=== PATIENT | male | born 1975 | race Caucasian/White ===

== ENCOUNTER → 2022-02-22 07:59 | Outpatient (BNVA) | payer MEDICAID, SELFPAY | PROVIDERS: PCP Internal Medicine; Referring Provider Internal Medicine; Visit Provider Nurse Practitioner Family | DX: Z12.11 Encounter for screening for malignant neoplasm of colon (principal); K21.9 Gastro-esophageal reflux disease without esophagitis | CPT/HCPCS: 99202 ==

== ENCOUNTER 2022-06-21 08:38 | Day surgery (SDC) | payer MEDICAID, SELFPAY ==
[2022-06-15 15:40] VITALS: BMI 28.4
--- NOTE | 2022-06-20 11:48 | P.CONAN_ITS ---
Documented by User: Andra Iyer NP 06/20/22 11:48 HPI - Anesthesia Eval Consult details Narrative: 46yo M for Colonoscopy [facility] Past Medical History Medical History GERD (gastroesophageal reflux disease) Family History Family History Father Diabetes Mother Diabetes Surgical History Surgical History No pertinent past surgical history Social History Social History Alcohol intake: never Patient Tobacco Use Status: Never used Tobacco Use of substances other than those prescribed or required for medical reasons: Yes Substance Use Type Other:: hookah occasional (Bulgarian custom) Substance Use Frequency: Occasionally Are you DNR?: No Advance Directives: No Advance Directives Information Provided: Yes Meds Allergies Allergy/AdvReac Type Severity Reaction Status Date / Time No Known Allergies Allergy Verified 02/22/22 08:10 Exam Exam Date and Time: June 20, 2022 1148 Height,Weight and Vital Signs: Height 5 ft 8 in Weight 84.822 kg Assessment and Plan Assessment Anesthesia Assessment: Chart Reviewed Documented by User: Ava Law MD 06/21/22 09:35 [facility] Past Medical History Medical History GERD (gastroesophageal reflux disease) Functional capacity: independent ambulation Family History Family History Father Diabetes Mother Diabetes Family history of problems with anesthesia: No Surgical History Surgical History No pertinent past surgical history History of Problems with Anesthesia: No Social History Social History Alcohol intake: never Patient Tobacco Use Status: Never used Tobacco Use of substances other than those prescribed or required for medical reasons: Yes Substance Use Type Other:: hookah occasional (Bulgarian custom) Substance Use Frequency: Occasionally Are you DNR?: No Advance Directives: No Advance Directives Information Provided: Yes Meds Allergies Allergy/AdvReac Type Severity Reaction Status Date / Time No Known Allergies Allergy Verified 02/22/22 08:10 Exam Airway Mallampati Class: II TM Dist: >3cm Heart: RRR Lungs: CTA Assessment and Plan Final Anesthetic Review Family History of Problems with Anesthesia: No History of Problems with Anesthesia: No NPO: Yes ASA Class: II Final Preanesthetic Review: No Changes in Pt Med Stat, Meds/Allgs Chart Reviewed, Consent Obtained/Reviewed and Anes Risks/Benef Reviewed Patient Risk: Low Procedure Risk: Low Anesthetic Plan Anesthetic Plan: MAC: Disposition: Standard PACU
[2022-06-21 08:56] VITALS: BP 112/79; PULSE 80; RESP 16; TEMP 36.5; O2SAT 97; BMI 28.8
[2022-06-21] MEDS: Lactated Ringers 1,000 ML 100 ML IVCONT (09:14)
--- NOTE | 2022-06-21 09:14 | P.HPSUR_ITS ---
Pre-Procedural Eval Section A Date of Service: 06/21/22 Section B Chief Complaint: screening Relevant Family History (Specify if Yes): No Relevant Social History: Other (specify) (hookah ) Present Medications: see Short Stay Collaborative assessment Medical History: Significant History (gerd) History of Previous Operations: No relevant previous surgery Allergies: Allergies Allergy/AdvReac Type Severity Reaction Status Date / Time No Known Allergies Allergy Verified 02/22/22 08:10 Review of Systems Sugical H&P ROS: Negative: Constitution, Cardiovascular, Respiratory, Neurological, Psychiatric, Hem-Onc, Allergic/Immunologic, Gastrointestinal, Genitourinary, Musculoskeletal, Integumentary, Endocrine and Eyes/Ears/Nose/Throat Exam Surgical H&P Exam: Normal: HEENT, Normal: Heart, Normal: Lungs, Normal: E xtremities, Normal: Abdomen, Normal: Skin and Normal: Neurological Plan Diagnosis/Plan: Unchanged I have reviewed the history and physical and performed a pertinent physical examination on my patient. No changes have occurred unless specified.
--- NOTE | 2022-06-21 09:14 | P.OP_ITS ---
Operative Note Operative Note Date of Service: 06/21/22 Narrative: Operative Information Procedure Description: Colonoscopy Indication: screening Anesthesia: MAC COLONOSCOPY Instrument: Olympus variable stiffness pediatric scope 190L Colonoscopy Monitoring: Vital signs and clinical assessment, continuous EKG monitoring, Pulse oximetry, Carbon Dioxide monitoring and blood pressure monitoring were done throughout the procedure. Colon withdrawal time was 6 minutes. Procedure: The patient was placed in the left lateral decubitis position and pre-procedure medications were administered. After a digital rectal examination of the ano-rectum, the video colonoscope was inserted into the rectum and advanced through the colon to the cecum/TI. The colonoscope was slowly withdrawn in a retrograde panoramic fashion and the colon mucosa was carefully examined including a retroflexed view of the rectum. Findings and interventions are described below. Procedure Difficulty: easy Findings: Terminal Ileum-normal right sided retroflexion--normal Cecum:normal Ascending Colon: normal Transverse Colon -normal Descending Colon: 10 mm sessile polyp removed with cold snare, kudo pattern consistent with adenoma Sigmoid Colon: normal Rectum: Retroflexion with small internal hemorrhoids, grade I Anorectum - normal Colon preparation: [place] Bowel Preparation Scale Right colon; 3 Transverse colon: 3 Left colon; 3 (0 = Unprepared colon segment with mucosa not seen due to solid stool that cannot be cleared. 1 = Portion of mucosa of the colon segment seen, but other areas of the colon segment not well seen due to staining, residual stool and/or opaque liquid. 2 = Minor amount of residual staining, small fragments of stool and/or opaque liquid, but mucosa of colon segment seen well. 3 = Entire mucosa of colon segment seen well with no residual staining, small f ragments of stool or opaque liquid) Impression and Post Procedure Diagnosis: polyp internal hemorrhoids Plan: High fiber diet leaflet Avoid straining at stool, epsom salts and sitz bath, anusol supps or cream Repeat Colonoscopy in 5 years due to polyp or earlier if clinically indicated Above findings were reviewed with the patient and relevant handouts were provided if indicated.
[2022-06-21 09:47] VITALS: BP 89/55; PULSE 81; RESP 16; TEMP 36.8; O2SAT 95
== END 2022-06-21 11:24 | disposition home or self-care (01) ==
PROVIDERS: PCP Internal Medicine; Visit Provider Internal Medicine Gastroenterology
PROC: 0DJD8ZZ Inspection of Lower Intestinal Tract, Via Natural or Artificial Opening Endoscopic (ICD-10-PCS; CPT 45378; principal; 2022-06-21 09:30)
DX: Z12.11 Encounter for screening for malignant neoplasm of colon (principal); D12.2 Benign neoplasm of ascending colon; K64.0 First degree hemorrhoids; K21.9 Gastro-esophageal reflux disease without esophagitis
CPT/HCPCS: 45385; 88305

== ENCOUNTER 2022-07-19 08:12 | Outpatient (REF) | payer MEDICAID, SELFPAY ==
[2022-07-20 13:31] LABS: H Pylori Breath Test Negative (Negative)
== END 2022-07-19 08:13 | disposition home or self-care (01) ==
LOC: CF 08:12
PROVIDERS: PCP Internal Medicine; Referring Provider Internal Medicine; Visit Provider Nurse Practitioner Family
DX: K21.9 Gastro-esophageal reflux disease without esophagitis (principal); D36.9 Benign neoplasm, unspecified site; Z98.890 Other specified postprocedural states
CPT/HCPCS: 36415; 83013; 99212

== ENCOUNTER → 2022-10-18 09:46 | Outpatient (BNVA) | payer MEDICAID, SELFPAY | PROVIDERS: PCP Internal Medicine; Visit Provider Nurse Practitioner Family | DX: K21.9 Gastro-esophageal reflux disease without esophagitis (principal); Z79.899 Other long term (current) drug therapy | CPT/HCPCS: 99212 ==

== ENCOUNTER → 2023-01-16 10:01 | Outpatient (BNVA) | payer MEDICAID, SELFPAY | PROVIDERS: PCP Internal Medicine; Visit Provider Nurse Practitioner Family | DX: K21.9 Gastro-esophageal reflux disease without esophagitis (principal) | CPT/HCPCS: 99212 ==

== ENCOUNTER 2023-02-14 11:49 | Day surgery (SDC) | payer MEDICAID, SELFPAY ==
--- NOTE | 2023-02-13 13:28 | HO.ANESPROP2 ---
Documented by User: Andra Iyer NP 02/13/23 13:28 HPI - Anesthesia Eval Consult details Narrative: 47yo M for Upper Endoscopy [facility] Active Problems Active Problems: All Active Problems (Updated 07/19/22 @ 09:09 by Meaghan Liu [facility]) Tubular adenoma (Acute) Past Medical History Medical History GERD (gastroesophageal reflux disease) Tubular adenoma Family History Family History Father Diabetes Mother Diabetes Family history of problems with anesthesia: No Surgical History Surgical History Hx of colonoscopy No pertinent past surgical history History of Problems with Anesthesia: No Social History Social History Alcohol intake: never Patient Tobacco Use Status: Former Tobacco user Quit Date: 2005 Use of substances other than those prescribed or required for medical reasons: No Are you DNR?: No Advance Directives: No Advance Directives Information Provided: Yes Meds Allergies Allergy/AdvReac Type Severity Reaction Status Date / Time No Known Allergies Allergy Verified 02/14/23 12:13 Exam Exam Date and Time: February 13, [id number] Assessment and Plan Assessment Anesthesia Assessment: Chart Reviewed Final Anesthetic Review Family History of Problems with Anesthesia: No History of Problems with Anesthesia: No Documented by User: Emily Flores MD 02/14/23 13:23 PMF[facility] Active Problems Active Problems: All Active Problems (Updated 02/14/23 @ 12: by Emily Flores MD) Tubular adenoma (Acute) Past Medical History Medical History GERD (gastroesophageal reflux disease) Tubular adenoma Family History Family History Father Diabetes Mother Diabetes Surgical History Surgical History Hx of colonoscopy No pertinent past surgical history Social History Social History Alcohol intake: never Patient Tobacco Use Status: Former Tobacco user Quit Date: 2005 Use of substances other than those prescribed or required for medical reasons: No Are you DNR?: No Advance Directives: No Advance Directives Information Provided: Yes Meds Allergies Allergy/AdvReac Type Severity Reaction Status Date / Time No Known Allergies Allergy Verified 02/14/23 12:13 Exam Height,Weight and Vital Signs: Height 5 ft 8 in Weight 86.183 kg Vital Signs Temp Pulse Resp BP Pulse Ox O2 Del Method 02/14/23 12:32 97.7 F 63 15 123/79 95 Room Air Airway Mallampati Class: II TM Dist: >3cm Neck ROM: Full Loose/Missing/Broken Teeth: Yes (Couple of extractions back) Heart: RRR Lungs: CTAB Assessment and Plan Assessment Anesthesia Assessment: Anesthesia Plan Discussed Final Anesthetic Review NPO: Yes ASA Class: II Final Preanesthetic Review: No Changes in Pt Med Stat, Meds/Allgs Chart Reviewed, Consent Obtained/Reviewed and Anes Risks/Benef Reviewed Patient Risk: Low Procedure Risk: Low Assessment/Block/Sedation in SS: Assess/Block/Sedation-SS Anesthetic Plan Anesthetic Plan: MAC: Disposition: Standard PACU
--- NOTE | 2023-02-14 12:08 | MHC.SHP ---
Documented by User: Kyree Knutson MD 02/14/23 15:03 Pre-Procedural Eval Section A Date of Service: 02/14/23 Section B Chief Complaint: Gastro-esophageal reflux disease without esophagit Relevant Social History: None Present Medications: see Short Stay Collaborative assessment Medical History: Significant History (GERD (gastroesophageal reflux disease) Tubular adenoma) History of Previous Operations: Relevant previous surgery/procedure and date(s) (colonoscopy) Allergies: Allergies Allergy/AdvReac Type Severity Reaction Status Date / Time No Known Allergies Allergy Verified 01/16/23 10:19 Review of Systems Sugical H&P ROS: Negative: Constitution, Cardiovascular, Respiratory, Neurological, Psychiatric, Hem-Onc, Allergic/Immunologic, Gastrointestinal, Genitourinary, Musculoskeletal, Integumentary, Endocrine and Eyes/Ears/Nose/Throat Exam Surgical H&P Exam: Normal: HEENT, Normal: Heart, Normal: Lungs, Normal: Extremities, Normal: Abdomen, Normal: Skin and Normal: Neurological Plan Diagnosis/Plan: Unchanged I have reviewed the history and physical and performed a pertinent physical examination on my patient. No changes have occurred unless specified. Time Spent With Patient Time: Total time managing care of this patient today ____ minutes. Documented by User: Emily Flores MD 02/14/23 13:25 Pre-Procedural Eval Section A Date of Service: 02/14/23 Section B Chief Complaint: Gastro-esophageal reflux disease without esophagit
[2023-02-14 12:14] VITALS: BMI 28.9
[2023-02-14 12:32] VITALS: BP 123/79; PULSE 63; RESP 15; TEMP 36.5; O2SAT 95
[2023-02-14] MEDS: Lactated Ringers 1,000 ML 100 ML IVCONT (12:51)
--- NOTE | 2023-02-14 15:03 | W.PM.OPN ---
Operative Note Operative Note Date of Service: 02/14/23 Narrative: Procedure Description: EGD Indication: GERD Anesthesia: MAC FLEXIBLE TRANSORAL UPPER GASTROINTESTINAL ENDOSCOPY UPPER ENDOSCOPY Consent: Indications for the procedure and potential complications of bleeding, perforation, reaction to medications and missed diagnosis were discussed with the patient and informed consent was obtained. Instrument: Olympus GIF H 190 J mid size upper endoscope Monitoring: Vital signs and clinical assessment, continuous EKG monitoring, Pulse oximetry, Carbon Dioxide monitoring and blood pressure monitoring were done throughout the procedure. Procedure: The patient was placed in the left lateral decubitis position and pre-procedure medications were administered and a bite block was placed. The endoscope was inserted into the mouth and advanced under direct vision to the third part of duodenum. A careful inspection was made as the upper endoscope was withdrawn including a retroflexed examination of the proximal stomach; Findings and interventions are described below. Findings: Larynx:normal Esophagus: GE junction at 38 cm, diaphragm hiatus at 38 cm, irregular z line with some erythema, bx taken from GEJ and distal esophagus Stomach: Patchy gastric erythema. Biopsies were obtained. Grade 2 flap valve on retroflexed examination of the cardia. In the pre pylori area there was submucosal swelling, which was mobile and not fixed. tunneled bx taken. Duodenum: Possible polypoid leison in the bulb about 7-8 mm, removed with cold snare and remnant piece with cold forceps Intervention: Biopsies as noted above, cold snare polypectomy Impression/Findings: polyp gastritis esophagitis submucosal swelling ddx: lipoma, GISt, leiomyoma PLAN: await bx, if h pylori pos then treat if submucosal bx indeterminate then consider referral to [facility] for EUS
[2023-02-14 15:35] VITALS: BP 123/79; PULSE 79; RESP 15; TEMP 36.2; O2SAT 97
[2023-02-14 15:40] VITALS: BP 127/82; PULSE 67; RESP 16; O2SAT 95
[2023-02-14 15:45] VITALS: BP 128/83; PULSE 68; RESP 16; O2SAT 96
[2023-02-14 16:05] VITALS: BP 133/89; PULSE 67; RESP 16; TEMP 36.2; O2SAT 97
== END 2023-02-14 16:25 | disposition home or self-care (01) ==
PROVIDERS: PCP Internal Medicine; Visit Provider Internal Medicine Gastroenterology
PROC: 0DJ08ZZ Inspection of Upper Intestinal Tract, Via Natural or Artificial Opening Endoscopic (ICD-10-PCS; CPT 43235; principal; 2023-02-14 13:30)
DX: K21.9 Gastro-esophageal reflux disease without esophagitis (principal); K29.50 Unspecified chronic gastritis without bleeding; K31.7 Polyp of stomach and duodenum; K20.80 Other esophagitis without bleeding; Z79.899 Other long term (current) drug therapy; K44.9 Diaphragmatic hernia without obstruction or gangrene
CPT/HCPCS: 43251; 43239; 88305; 88342

== ENCOUNTER 2023-02-28 11:55 | Outpatient (AMB) | payer MEDICAID, SELFPAY ==
--- NOTE | 2023-02-28 12:00 | A.OFFVIS_ITS ---
Intake Vital Signs 02/28/23 12:01 Height 5 ft 8 in Weight 196 lb BMI 29.8 BP 134/76 Blood Pressure Location Lt brachial Position Sitting Intake Visit Reasons: s/P EGD; Dr. Knutson Intake Note: Tye presents in office as a est.patient for a post-op for EGD pt got EGD 02.14.23 PT CC: pt reports having no cocnerns pt denies any other GI Issues Senior Label Specialist Required: No Accompanied by: Self / Same As Patient Allergies No Known Allergies Allergy (Verified 02/28/23 12:00) HPI s/P EGD; Dr. Knutson HPI Details LAST VISIT GERD (gastroesophageal reflux disease) Long discussion about taking medications to treat his symptoms. Importance of going for upper endoscopy to rule out gastritis, esophagitis, duodenitis, gastric or peptic ulcers, Castelan's, H pylori. What to expect before during and after procedure discussed with patient. Risks discussed with patient as well. I will see patient after the procedure, sooner on as needed basis. Patient is agreeable to this plan and verbalizes understanding of instructions. He was given the opportunity to ask questions and all questions answered. ? UPPER ENDOSCOPY Findings: Larynx:normal Esophagus: GE junction at 38? cm, diaphragm hiatus at 38 cm, irregular z line wi th some erythema, bx taken from GEJ and distal esophagus Stomach: Patchy gastric erythema. Biopsies were obtained. Grade 2 flap valve on retroflexed examination of the cardia. In the pre pylori area there was? submucosal swelling, which was mobile and not fixed. tunneled bx taken. Duodenum: Possible polypoid leison in the bulb about 7-8 mm, removed with cold snare and remnant piece with cold forceps Intervention: Biopsies as noted above, cold snare polypectomy Impression/Findings: polyp gastritis esophagitis submucosal swelling ddx: lipoma, GISt, leiomyoma PLAN: await bx, if h pylori pos then treat if submucosal bx indeterminate then consider referral to [facility] for EUS PATHOLOGY RESULTS Diagnosis A.? Duodenal bulb, polyp:? Duodenal mucosa with gastric glands with parietal and chief cells, gastric foveolar surface epithelium and minimal chronic inflammation, consistent with gastric heterotopia; negative for dysplasia. B.? Stomach, nodule, biopsy:? Gastric antral mucosa with mild reactive changes and minimal chronic inactive gastritis; negative for H pylori, intestinal metaplasia and dysplasia (see comment).? C.? Stomach, random, biopsy:? Gastric body mucosa with focal minimal chronic inactive inflammation; negative for H pylori, intestinal metaplasia and dysplasia.? D.? Gastroesophageal junction, biopsy:? Squamocolumnar mucosa with mild chronic active inflammation; negative for intestinal metaplasia and dysplasia.? E.? Esophagus, distal, biopsy:? Squamous mucosa with no specific change; no columnar mucosa present. Comment: (B):? No explanation for a nodule is identified and a submucosal lesion cannot be excluded; clinical correlation necessary TODAY'S VISIT: Patient is here today for follow-up and to discuss upper endoscopy results. Upper endoscopy results discussed with patient. Small nodule found in patient's stomach and recommendation was made for patient to go for endoscopic ultrasound. Patient will be referred to [facility]. Patient denies any GI concerning symptoms. Reports that omeprazole is working and he no longer has acid reflux. Patient denies dyspepsia, dysphagia or odynophagia. Denies any nausea or vomiting. PFSH Medical History GERD (gastroesophageal reflux disease) Tubular adenoma Surgical History History of esophagogastroduodenoscopy (EGD) Hx of colonoscopy No pertinent past surgical history Family History Father Diabetes Mother Diabetes Social History Alcohol intake: never Patient Tobacco Use Status: Former Tobacco user Quit Date: 2005 Review of Systems Const Denies weight gain and Denies weight loss ENT Reports no additional complaints, Denies dysphagia and Denies odynophagia Card Reports no additional complaints Resp Reports no additional complaints GI Denies abdominal pain, Denies belching, Denies melena, Denies bloating, Denies change in bowel habits, Denies dysphagia, Denies excessive flatus, Denies dyspepsia, Denies heartburn, Denies diarrhea, Denies loose stools, Denies nausea, Denies odynophagia and Denies vomiting Reports no additional complaints Musc Reports no additional complaints Neuro Reports no additional complaints Psych Reports no additional complaints Endo Reports no additional complaints Physical Exam Vital Signs: Last Vital Signs BP 134/76 02/28/23 12:01 BMI result Body Mass Index 29.8 Const General: healthy appearing, no acute distress and well developed Nutritional Appearance: well nourished Orientation/consciousness: patient oriented x3 HEENT Head: Yes normal to inspection, Yes normocephalic and Yes atraumatic Face and sinus: Yes normal facial exam Mouth: Normal oral and palatal mucosa present Throat: Yes posterior oropharynx normal, Yes tonsils normal and Yes uvula midline Eyes General: appearance normal, both eyes and all related structures Neck Neck: Yes normal visual inspection, Yes full ROM and Yes trachea midline Thyroid: Thyroid normal Resp Effort & Inspection: normal respiratory effort, able to speak in complete sentences, no tracheal deviation and symmetric chest movement Auscultation: clear to auscultation bilaterally Cardio Rate: regular rate Heart sounds: S1 normal heart sound present and S2 normal heart sound present GI Inspection: Yes normal to inspection, No distended and Yes obesity Palpation (GI): Soft to palpation, not firm, nontender and No hepatosplenomegaly present Auscultation: normal bowel sounds General: Yes no CVA tenderness Back/Spine/Pelvis Back: no CVA tenderness Skin General skin exam: elasticity normal, turgor normal and dry skin Neuro General: patient oriented x3 Psych Appearance: grossly normal Mental Status: mental status grossly normal Speech and movement: Normal speech and movement present Affect: normal affect Assessment & Plan Assessment & Plan (1) Gastric nodule: Code(s): K31.89 - Other diseases of stomach and duodenum Plan: Gastric nodule referral for endoscopic ultrasound to [facility]. Biopsy did not show any dysplasia or metaplasia. (2) GERD (gastroesophageal reflux disease): Code(s): K21.9 - Gastro-esophageal reflux disease without esophagitis Qualifiers: Esophagitis presence: without esophagitis Qualified Code(s): K21.9 - Gastro-esophageal reflux disease without esophagitis Plan: Continue omeprazole every morning half an hour before breakfast. Discussed with patient avoiding dietary triggers in late night snacking. Staying upright for minimal 3 hours after meals discussed with patient. I will see patient in 6 months, sooner on as needed basis. Patient is agreeable to this plan and verbalizes understanding of instructions. He was given the opportunity to ask questions and all questions answered. Thank you for allowing me to participate in his care Orders: Referrals Gastroenterology Referral K31.89 - Other diseases of stomach and duodenum Medications: Refilled omeprazole 20 mg PO DAILY 90 caps 2RF K21.9 - Gastro-esophageal reflux disease without esophagitis Coding Level of Care Code Est Pt Level 3 (79758) Diagnoses Gastric nodule K31.89 GERD (gastroesophageal reflux disease) K21.9 Esophagitis presence: without esophagitis Time Spent (min) 30 Comment 20 minutes spent with patient and additional 10 minutes spent reviewing his records
[2023-02-28 12:01] VITALS: BP 134/76; BMI 29.8
== END 2023-02-28 12:28 | disposition home or self-care (01) ==
PROVIDERS: PCP Internal Medicine; Visit Provider Nurse Practitioner Family
DX: K31.89 Other diseases of stomach and duodenum (principal); K21.9 Gastro-esophageal reflux disease without esophagitis
CPT/HCPCS: 99213

== ENCOUNTER → 2023-02-28 11:55 | Outpatient (BNVA) | payer MEDICAID, SELFPAY | PROVIDERS: PCP Internal Medicine; Visit Provider Nurse Practitioner Family | DX: K31.89 Other diseases of stomach and duodenum (principal); K21.9 Gastro-esophageal reflux disease without esophagitis | CPT/HCPCS: 99213 ==

== ENCOUNTER 2023-06-14 08:36 | Outpatient (REF) | payer MEDICAID, SELFPAY ==
[2023-06-14 15:14] LABS: Alanine Aminotransferase 42 U/L (0-40); Albumin Level 4.5 g/dL (3.5-5.0); Alkaline Phosphatase 59 U/L (39-117); Anion Gap 15 (12-20); Aspartate Amino Transferase 19 U/L (5-37); Bilirubin Total 0.8 mg/dL (0.0-1.0); Blood Urea Nitrogen 18 mg/dL (9-16); Calcium 9.9 mg/dL (8.4-10.2); Carbon Dioxide 24 mmol/L (22-29); Chloride 105 mmol/L (96-108); Cholesterol 189 mg/dL (<200); Estimated Glomerular Filt Rate > 60; Glucose Fasting 85 mg/dL (60-99); HDL Cholesterol 51 mg/dL (>40); LDL Cholesterol Calculated 105 mg/dL (<100); Sodium 140 mmol/L (135-145); Total Protein 7.4 g/dL (6.5-8.0); Triglycerides 167 mg/dL (<150)
== END 2023-06-14 08:37 | disposition home or self-care (01) ==
LOC: HO.CHCLDS 08:36
PROVIDERS: Visit Provider Internal Medicine
DX: E78.2 Mixed hyperlipidemia (principal)
CPT/HCPCS: 36415; 80053; 80061

== ENCOUNTER 2023-09-14 08:17 | Outpatient (AMB) | payer MEDICAID, SELFPAY ==
--- NOTE | 2023-09-14 08:21 | A.OFFVIS_ITS ---
Intake Vital Signs 09/14/23 08:26 Height 5 ft 8 in Weight 195 lb BMI 29.6 BP 116/68 Blood Pressure Location Lt brachial Position Sitting Pulse 63 Intake Visit Reasons: 6 Month Follow up Intake Note: Patient follow up for GERD. Patient denies any GI issues. [employer] Required: No Accompanied by: Self / Same As Patient Allergies No Known Allergies Allergy (Verified 09/14/23 08:21) HPI 6 Month Follow up HPI Details LAST VISIT: Gastric nodule Gastric nodule referral for endoscopic ultrasound to [facility]. Biopsy did not show any dysplasia or metaplasia. GERD (gastroesophageal reflux disease) Continue omeprazole every morning half an hour before breakfast. Discussed with patient avoiding dietary triggers in late night snacking. Staying upright for minimal 3 hours after meals discussed with patient. I will see patient in 6 months, sooner on as needed basis. Patient is agreeable to this plan and verbalizes understanding of instructions. He was given the opportunity to ask questions and all questions answered. ? Thank you for allowing me to participate in his care Plan Orders Referrals Gastroenterology Referral K31.89 - Other diseases of stomach and duodenum Medications Refilled omeprazole 20 mg PO DAILY 90 caps 2RF K21.9 - Gastro-esophageal reflux disease without esophagitis TODAY'S VISIT Patient is here today for follow-up. Patient reports that he has been feeling well. Denies any acid reflux, dyspepsia, dysphagia or odynophagia. Patient denies any melena, hematochezia, unintentional weight loss or ribbon like stools. Patient reports that he however is unable to lose weight. 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 Sometimes no time to eat food that is fresh patient is eating lot of pasta and bread. Patient reports that he is not eating late at night. Patient reports to have good appetite. [facility] Medical History GERD (gastroesophageal reflux disease) Tubular adenoma Surgical History History of esophagogastroduodenoscopy (EGD) Hx of colonoscopy No pertinent past surgical history Family History Father Diabetes Mother Diabetes Social History Alcohol intake: never Patient Tobacco Use Status: Former Tobacco user Quit Date: 2005 Review of Systems Const Denies weight gain and Denies weight loss ENT Reports no additional complaints, Denies dysphagia and Denies odynophagia Card Reports no additional complaints Resp Reports no additional complaints GI Denies abdominal pain, Denies belching, Denies melena, Denies bloating, Denies change in bowel habits, Denies dysphagia, Denies excessive flatus, Denies dyspepsia, Denies heartburn, Denies diarrhea, Denies loose stools, Denies nausea, Denies odynophagia and Denies vomiting Reports no additional complaints Musc Reports no additional complaints Neuro Reports no additional complaints Psych Reports no additional complaints Endo Reports no additional complaints Physical Exam Vital Signs: Last Vital Signs Pulse 63 09/14/23 08:26 BP 116/68 09/14/23 08:26 BMI result Body Mass Index 29.6 Const General: healthy appearing, no acute distress and well developed Nutritional Appearance: well nourished Orientation/consciousness: patient oriented x3 HEENT Head: Yes normal to inspection, Yes normocephalic and Yes atraumatic Face and sinus: Yes normal facial exam Mouth: Normal oral and palatal mucosa present Throat: Yes posterior oropharynx normal, Yes tonsils normal and Yes uvula midline Eyes General: appearance normal, both eyes and all related structures Neck Neck: Yes normal visual inspection, Yes full ROM and Yes trachea midline Thyroid: Thyroid normal Resp Effort & Inspection: normal respiratory effort, able to speak in complete sentences, no tracheal deviation and symmetric chest movement Auscultation: clear to auscultation bilaterally Cardio Rate: regular rate GI Inspection: Yes normal to inspection and No distended Palpation (GI): Soft to palpation, not firm, nontender and No hepatosplenomegaly present Auscultation: normal bowel sounds General: Yes no CVA tenderness Back/Spine/Pelvis Back: no CVA tenderness Skin General skin exam: elasticity normal, turgor normal and dry skin Neuro General: patient oriented x3 Psych Appearance: grossly normal Mental Status: mental status grossly normal Assessment & Plan Assessment & Plan (1) GERD (gastroesophageal reflux disease): Code(s): K21.9 - Gastro-esophageal reflux disease without esophagitis Qualifiers: Esophagitis presence: without esophagitis Qualified Code(s): K21.9 - Gastro-esophageal reflux disease without esophagitis Plan Patient can continue omeprazole and try to wean himself off take every other day. Discussed with him avoiding dietary triggers and late night snacking. Staying upright for minimum 3 hours after meals discussed with patient. I will see him in 2 months, sooner on as needed basis. Patient is agreeable to this plan and verbalizes understanding of instructions. He was given the opportunity to ask questions and all questions answered. Thank you for allowing me to participate in his care Coding Level of Care Code Est Pt Level 3 (21458) Diagnoses Gastroesophageal reflux disease without esophagitis K21.9 Esophagitis presence: without esophagitis Time Spent (min) 25 Comment 15 minutes spent with patient and additional 10 minutes spent reviewing his records
[2023-09-14 08:26] VITALS: BP 116/68; PULSE 63; BMI 29.6
== END 2023-09-14 08:39 | disposition home or self-care (01) ==
PROVIDERS: PCP Internal Medicine; Visit Provider Nurse Practitioner Family
DX: K21.9 Gastro-esophageal reflux disease without esophagitis (principal)
CPT/HCPCS: 99213

== ENCOUNTER → 2023-09-14 08:17 | Outpatient (BNVA) | payer MEDICAID, SELFPAY | PROVIDERS: PCP Internal Medicine; Visit Provider Nurse Practitioner Family | DX: K21.9 Gastro-esophageal reflux disease without esophagitis (principal); Z79.899 Other long term (current) drug therapy | CPT/HCPCS: 99212 ==

== ENCOUNTER 2023-11-16 08:21 | Outpatient (AMB) | payer MEDICAID, SELFPAY ==
--- NOTE | 2023-11-16 08:25 | A.OFFVIS_ITS ---
Intake Vital Signs 11/16/23 08:29 Height 5 ft 8 in Weight 189 lb BMI 28.7 BP 133/77 Blood Pressure Location Lt brachial Position Sitting Pulse 86 Intake Visit Reasons: 6 Mth Follow up Intake Note: Patient 6 month follow up for GERD. Patient denies any GI issues. Wind Tunnel Mechanic Required: No Accompanied by: Self / Same As Patient Allergies No Known Allergies Allergy (Verified 11/16/23 08:24) HPI 6 Mth Follow up HPI Details LAST VISIT: GERD (gastroesophageal reflux disease) Plan Patient can continue omeprazole and try to wean himself off take every other day. Discussed with him avoiding dietary triggers and late night snacking. Staying upright for minimum 3 hours after meals discussed with patient. I will see him in 2 months, sooner on as needed basis. Patient is agreeable to this plan and verbalizes understanding of instructions. He was given the opportunity to ask questions and all questions answered. TODAY'S VISIT Patient is here today for follow-up. Patient reports that he has been doing well, however depending on what he eats he might have postprandial abdominal bloating and dyspepsia. Patient reports that he is taking omeprazole daily. Trying to avoid dietary triggers. Patient reports that he does not eat out, however only occasionally he will stop to get some food to eat like pizza. Patient usually eats home cooked meals. Patient denies nausea or vomiting. Denies melena, hematochezia, unintentional weight loss or ribbon like stools. Patient denies any dysphagia or odynophagia. [facility] Medical History GERD (gastroesophageal reflux disease) Tubular adenoma Surgical History History of esophagogastroduodenoscopy (EGD) Hx of colonoscopy No pertinent past surgical history Family History Father Diabetes Mother Diabetes Social History Alcohol intake: never Patient Tobacco Use Status: Former Tobacco user Quit Date: 2005 Review of Systems Const Denies weight gain and Denies weight loss ENT Reports no additional complaints, Denies dysphagia and Denies odynophagia Card Reports no additional complaints Resp Reports no additional complaints GI Denies abdominal pain, Denies belching, Denies melena, Denies bloating, Denies change in bowel habits, Denies dysphagia, Denies excessive flatus, Reports dyspepsia, Reports heartburn, Denies diarrhea, Denies loose stools, Denies nausea, Denies odynophagia and Denies vomiting Reports no additional complaints Musc Reports no additional complaints Neuro Reports no additional complaints Psych Reports no additional complaints Endo Reports no additional complaints Physical Exam Vital Signs: Last Vital Signs Pulse 86 11/16/23 08:29 BP 133/77 11/16/23 08:29 BMI result Body Mass Index 28.7 Const General: healthy appearing, no acute distress and well developed Nutritional Appearance: well nourished Orientation/consciousness: patient oriented x3 Resp Effort & Inspection: normal respiratory effort, able to speak in complete sentences, no tracheal deviation and symmetric chest movement Auscultation: clear to auscultation bilaterally Cardio Rate: regular rate GI Inspection: Yes normal to inspection and No distended Palpation (GI): Soft to palpation, not firm, nontender and No hepatosplenomegaly present Auscultation: normal bowel sounds General: Yes no CVA tenderness Back/Spine/Pelvis Back: no CVA tenderness Skin General skin exam: elasticity normal, turgor normal and dry skin Neuro General: patient oriented x3 Psych Appearance: grossly normal Mental Status: mental status grossly normal Assessment & Plan Assessment & Plan (1) Gastric nodule: Code(s): K31.89 - Other diseases of stomach and duodenum (2) GERD (gastroesophageal reflux disease): Code(s): K21.9 - Gastro-esophageal reflux disease without esophagitis Qualifiers: Esophagitis presence: esophagitis presence not specified Qualified Code(s): K21.9 - Gastro-esophageal reflux disease without esophagitis (3) Postprandial abdominal bloating: Code(s): R14.0 - Abdominal distension (gaseous) Plan Continue current dose of omeprazole. Continue avoiding dietary triggers late night snacking. Staying upright for minimal 3 hours after meals discussed with patient. Low FODMAP diet discussed with patient. Patient will return in 6 months, sooner on as needed basis. Patient is agreeable to this plan and verbalizes understanding of instructions. He was given the opportunity to ask questions and all questions answered. Thank you for allowing me to participate in his care Coding Level of Care Code Est Pt Level 3 (67321) Diagnoses Gastric nodule K31.89 Gastroesophageal reflux disease, unspecified whether esophagitis present K21.9 Esophagitis presence: esophagitis presence not specified Postprandial abdominal bloating R14.0 Time Spent (min) 25 Comment 15 minutes spent with patient and additional 10 minutes spent reviewing his records
[2023-11-16 08:29] VITALS: BP 133/77; PULSE 86; BMI 28.7
== END 2023-11-16 08:57 | disposition home or self-care (01) ==
PROVIDERS: PCP Internal Medicine; Visit Provider Nurse Practitioner Family
DX: K31.89 Other diseases of stomach and duodenum (principal); K21.9 Gastro-esophageal reflux disease without esophagitis; R14.0 Abdominal distension (gaseous)
CPT/HCPCS: 99213

== ENCOUNTER → 2023-11-16 08:21 | Outpatient (BNVA) | payer MEDICAID, SELFPAY | PROVIDERS: PCP Internal Medicine; Visit Provider Nurse Practitioner Family | DX: K31.89 Other diseases of stomach and duodenum (principal); K21.9 Gastro-esophageal reflux disease without esophagitis; R14.0 Abdominal distension (gaseous) | CPT/HCPCS: 99212 ==

== ENCOUNTER 2023-12-07 10:26 | Outpatient (REF) | payer MEDICAID, SELFPAY ==
[2023-12-07 15:08] LABS: Alanine Aminotransferase 31 U/L (0-40); Albumin Level 4.3 g/dL (3.5-5.0); Alkaline Phosphatase 62 U/L (39-117); Anion Gap 12 (12-20); Aspartate Amino Transferase 15 U/L (5-37); Bilirubin Total 0.7 mg/dL (0.0-1.0); Blood Urea Nitrogen 17 mg/dL (9-16); Calcium 9.8 mg/dL (8.4-10.2); Carbon Dioxide 28 mmol/L (22-29); Chloride 105 mmol/L (96-108); Cholesterol 213 mg/dL (<200); Estimated Glomerular Filt Rate > 60; Glucose Random 91 mg/dL (60-115); HDL Cholesterol 58 mg/dL (>40); LDL Cholesterol Calculated 126 mg/dL (<100); Sodium 141 mmol/L (135-145); Total Protein 7.5 g/dL (6.5-8.0); Triglycerides 145 mg/dL (<150)
== END 2023-12-07 10:27 | disposition home or self-care (01) ==
LOC: HO.CHCLDS 10:26
PROVIDERS: Visit Provider Internal Medicine
DX: E78.2 Mixed hyperlipidemia (principal)
CPT/HCPCS: 36415; 80053; 80061

== ENCOUNTER 2024-08-19 15:18 | Outpatient (AMB) | payer MEDICAID, SELFPAY ==
--- NOTE | 2024-08-19 15:25 | A.OFFVIS_ITS ---
Vital Signs 08/19/24 15:27 Height 5 ft 8 in Weight 199 lb 11.821 oz BMI 30.4 BP 108/65 Blood Pressure Location Lt brachial Position Sitting Pulse 64 Intake Visit Reasons: 6 mnth follow up Intake Note: ESTABLISHED PATIENT Tye presents in office today for a scheduled 6 mos FUV. Patient reports he is dong well, he has no concerns today. Allergies No Known Allergies Allergy (Verified 08/19/24 15:27) HPI HPI 6 mnth follow up: Details: LAST VISIT Gastric nodule GERD (gastroesophageal reflux disease) Postprandial abdominal bloating Plan Continue current dose of omeprazole. Continue avoiding dietary triggers late night snacking. Staying upright for minimal 3 hours after meals discussed with patient. Low FODMAP diet discussed with patient. Patient will return in 6 months, sooner on as needed basis. Patient is agreeable to this plan and verbalizes understanding of instructions. He was given the opportunity to ask questions and all questions answered. TODAY'S VISIT Patient is here today for follow-up. Patient reports that he is doing well. Taking omeprazole every morning and his symptoms of acid reflux are suppressed. Patient denies any nausea or vomiting. Denies dyspepsia, dysphagia or odynophagia. Patient had esophageal ultrasound to evaluate gastric nodule that was found to be lipoma. No further evaluation was recommended. Patient reports that he tried to stop taking omeprazole and his if stent came back after couple days. He is taking it daily now. Patient is trying to avoid dietary triggers. However he does report that he eats lot of bread because of his culture. Patient usually does not eat anything that is spicy or fried. Patient is interested in losing weight. Denies melena, hematochezia, unintentional weight loss or ribbon like stools. [facility] Medical History GERD (gastroesophageal reflux disease) Tubular adenoma Surgical History History of esophagogastroduodenoscopy (EGD) Hx of colonoscopy No pertinent past surgical history Family History Father Diabetes Mother Diabetes Social History Alcohol intake: never Patient Tobacco Use Status: Former Tobacco user Review of Systems Const Denies weight gain and Denies weight loss ENT Reports no additional complaints, Denies dysphagia and Denies odynophagia Card Reports no additional complaints Resp Reports no additional complaints GI Denies abdominal pain, Denies belching, Denies melena, Denies bloating, Denies change in bowel habits, Denies dysphagia, Denies excessive flatus, Denies dyspepsia, Denies heartburn, Denies diarrhea, Denies loose stools, Denies nausea, Denies odynophagia and Denies vomiting Reports no additional complaints Musc Reports no additional complaints Neuro Reports no additional complaints Psych Reports no additional complaints Endo Reports no additional complaints Physical Exam Vital Signs: Last Vital Signs Pulse 64 08/19/24 15:27 BP 108/65 08/19/24 15:27 BMI result Body Mass Index 30.4 Const General: healthy appearing, no acute distress and well developed Nutritional Appearance: well nourished Orientation/consciousness: patient oriented x3 Resp Effort & Inspection: normal respiratory effort, able to speak in complete sentences, no tracheal deviation and symmetric chest movement Auscultation: clear to auscultation bilaterally Cardio Rate: regular rate GI Inspection: Yes normal to inspection and No distended Palpation (GI): Soft to palpation, not firm, nontender and No hepatosplenomegaly present Auscultation: normal bowel sounds General: Yes no CVA tenderness Back/Spine/Pelvis Back: no CVA tenderness Skin General skin exam: elasticity normal, turgor normal and dry skin Neuro General: patient oriented x3 Psych Appearance: grossly normal Mental Status: mental status grossly normal Assessment & Plan Assessment & Plan (1) Gastric nodule: Code(s): K31.89 - Other diseases of stomach and duodenum Plan: Found to be lipoma no further evaluation needed per [facility] GI (2) GERD (gastroesophageal reflux disease): Code(s): K21.9 - Gastro-esophageal reflux disease without esophagitis Qualifiers: Esophagitis presence: without esophagitis Qualified Code(s): K21.9 - Gastro-esophageal reflux disease without esophagitis (3) Postprandial abdominal bloating: Code(s): R14.0 - Abdominal distension (gaseous) Plan Patient will continue taking omeprazole. Patient was encouraged to avoid dietary triggers. List of food given to patient. Patient will try to lose weight. Recommended berberine to try 1st. Otherwise speak to his PCP about any GLP1 if not successful on his own. Patient will follow-up in our office as needed. He is agreeable to current plan of care and verbalizes understanding of instructions. He was given the opportunity to ask questions and all questions answered. Thank you for allowing me to participate in his care Medications: Refilled omeprazole 20 mg PO DAILY 90 caps 2RF K21.9 - Gastro-esophageal reflux disease without esophagitis Coding Level of Care Code Est Pt Level 3 (12767) Diagnoses Gastric nodule K31.89 Gastroesophageal reflux disease without esophagitis K21.9 Esophagitis presence: without esophagitis Postprandial abdominal bloating R14.0 Time Spent (min) 25 Comment 15 minutes spent with patient and additional 10 minutes spent reviewing his records
[2024-08-19 15:27] VITALS: BP 108/65; PULSE 64; BMI 30.4
== END 2024-08-20 08:30 | disposition home or self-care (01) ==
PROVIDERS: PCP Internal Medicine; Visit Provider Nurse Practitioner Family
DX: K31.89 Other diseases of stomach and duodenum (principal); K21.9 Gastro-esophageal reflux disease without esophagitis; R14.0 Abdominal distension (gaseous)
CPT/HCPCS: 99213

== ENCOUNTER → 2024-08-19 15:18 | Outpatient (BNVA) | payer MEDICAID, SELFPAY | PROVIDERS: PCP Internal Medicine; Visit Provider Nurse Practitioner Family | DX: K21.9 Gastro-esophageal reflux disease without esophagitis (principal); K31.89 Other diseases of stomach and duodenum; R14.0 Abdominal distension (gaseous) | CPT/HCPCS: 99212 ==

== ENCOUNTER 2024-09-25 09:01 | Outpatient (REF) | payer MEDICAID, SELFPAY ==
[2024-09-25 14:35] LABS: Albumin Level 4.3 g/dL (3.5-5.0); Alkaline Phosphatase 59 U/L (39-117); Anion Gap 9 (12-20); Aspartate Amino Transferase 23 U/L (5-37); Bilirubin Total 0.7 mg/dL (0.0-1.0); Blood Urea Nitrogen 19 mg/dL (9-16); Calcium 9.6 mg/dL (8.4-10.2); Carbon Dioxide 26 mmol/L (22-29); Chloride 110 mmol/L (96-108); Cholesterol 185 mg/dL (<200); Estimated Glomerular Filt Rate > 60; Glucose Random 89 mg/dL (60-115); HDL Cholesterol 48 mg/dL (>40); LDL Cholesterol Calculated 100 mg/dL (<100); Potassium 4.2 mmol/L (3.3-5.1); Sodium 141 mmol/L (135-145); Total Protein 7.2 g/dL (6.5-8.0); Triglycerides 188 mg/dL (<150)
[2024-09-25 14:48] LABS: Alanine Aminotransferase 31 U/L (0-40)
== END 2024-09-25 09:02 | disposition home or self-care (01) ==
LOC: HO.CHCLDS 09:01
PROVIDERS: Visit Provider Internal Medicine
DX: E78.2 Mixed hyperlipidemia (principal)
CPT/HCPCS: 36415; 80053; 80061

== ENCOUNTER 2024-11-05 09:31 | Outpatient (REF) | payer MEDICAID, SELFPAY ==
--- NOTE | ~2024-11-05 | XR_ITS ---
EXAMINATION: XR KNEE, RIGHT CLINICAL INFORMATION: right knee pain COMPARISON: None available. TECHNIQUE: Four views of the right knee. FINDINGS: Joint space narrowing involving the medial compartment. No acute cortical disruption or malalignment. No lytic or blastic lesions. No suprapatellar joint effusion. No subcutaneous emphysema. XR/XR knee RT 3V IMPRESSION: Medial compartment osteoarthrosis versus medial meniscal injury. Electronically signed by: Chandler Luevano MD 11/07/2024 02:49 PM EST
--- OUTSIDE RECORDS SUMMARY | 2024-11-05 10:48 | XMS_ITS | Clinical Summary ---
Author Organization Formerly [facility] Address [address] [place] [address] Care Team Providers Care Healthcare Marketer Name Role Phone Pcp, No Primary Care Provider Unavailabl e Allergies No known active allergies Medications Medication Sig Dispensed Refills Start Date End Date Status erythromycin (ILOTYCIN) ophthalmic ointment Place a small ribbon of ointment inside the lower eyelid of the affected eye every six hours while awake 3.5 g 12/29/2019 Active Social History Tobacco Use Types Packs/Day Years Used Date Smoking Tobacco: Never Assessed Sex and Gender Information Value Date Recorded Sex Assigned at Not on file Gender Identity Not on file Sexual Orientation Not on file Last Filed Vital Signs Vital Sign Reading Time Taken Comments Blood Pressure 128/60 12/29/2019 1:18 PM EDT Pulse 59 12/29/2019 1:18 PM EDT Temperature 36.2 ??C (97.1 ??F) 12/29/2019 1:18 PM ED T Respiratory Rate 16 12/29/2019 1:18 PM EDT Oxygen Saturation 99% 12/29/2019 1:18 PM EDT Inhaled Oxygen Concentration - - Weight - - Height - - Body Mass Index - - Plan of Treatment Health Maintenance Due Date Last Done Comments Hepatitis C Virus Screening 1976 HIV Screening 1989 DTaP/Tdap/Td Vaccines (1 - Tdap) 1995 Hepatitis B Vaccines (1 of 3 - 19+ 3-dose series) 1995 Colonoscopy 2021 Influenza Vaccine 04/03/2024 COVID-19 Vaccine (1 - 2023-2 5 season) 2024 Pneumococcal Vaccine: Pediat gee (0-5 Years) and At-Risk Patients (6 to 49 Years) Aged Out No longer eligible b ased on patient's age to complete this topic Care Teams Healthcare Marketer Relationship Specialty Start Date End Date Pcp, No PCP - General General Medicine 12/29/19
--- OUTSIDE RECORDS SUMMARY | 2024-11-05 10:48 | XMS_ITS | Encounter Summary ---
Author Organization [employer] Address [address] [place] [address] Care Team Providers Care Credit Review Analyst Name Role Phone Mitch Alcocer MD Primary Care Prov ider Encounter Details Date Type Department Care Team (Late st Contact Info) Description 10/02/2024 Orders Only [facility] [address] [place] [address] ProviderSarmad MD Social History Tobacco Use Types Packs/Day Years Used Date Smoking Tobacco: Never Smokeless Tobacco: Never Alcohol Use Standard Drinks/Week Comments Never 0 (1 standard drink = 0.6 oz pur e alcohol) Depression Answer Date Recorded Patient Health Questionnaire-9 Score 6 10/01/2024 Patient Health Questionnaire-9 Score 6 10/01/2024 Last PHQ-9: Questionnaire Data Not on file 0 10/01/2024 Housing Stability Answer Date Recorded What is your housing situation today? I have ryan samuel 10/04/[address] you li ve. Do you have problems with any of the following? None of the above 10/04/2023 Food Insecurity Answer Date Recorded Within the past 12 months, y ou worried that your food would run out before you got money to buy more: Never True 10/04/2023 Within the past 12 months,th e food you bought just didn't last and you didn't have enough money to get more: Never True 09/2023 Transportation Answer Date Recorded In the past 12 months, has l ack of transportation kept you from medical appts, meetings, work or from getting things needed for daily living? No 10/04/2023 Utilities Answer Date Recorded In the past 12 months, has t he electric, gas, oil or water company threatened to shut off services in your home? No 10/04/2023 Depression Answer Date Recorded Patient Health Questionnaire-2 Score 6 10/01/2024 Sex and Gender Information Value Date Recorded Sex Assigned at Male 07/03/2022 10:36 AM EDT Legal Sex Male 10:36 AM EDT Gender Identity Male 07/03/2022 10:36 AM EDT Sexual Orientation Straight 07/03/2022 10 :36 AM EDT documented as of this encounter Plan of Treatment Not on file documented as of this encounter Procedures Procedure Name Priority Date/Time Associated Diagnosis Comments TRANSTHORACIC ECHO (TTE) COMPLETE Routine 09/29/2024 3:59 PM EST documented in this encounter Results * Transthoracic echo (TTE) complete (09/29/2024 3:59 PM EST) Historical Provider MD [facility] ECHO PROCEDURES Final Result documented in this encounter Visit Diagnoses Not on filedocumented in this encounter Additional Health Concerns Assessment Noted Time PHQ-9 Depression Total Score: 6 10/01/19 25 9:43 AM EST documented as of this encounter Care Teams Credit Review Analyst Relationship Specialty Start Date End Date Mitch Alcocer MD [address] [place] [id number] PCP - General Internal Medicine 07/19/20 documented as of this encounter
--- OUTSIDE RECORDS SUMMARY | 2024-11-05 10:48 | XMS_ITS | Encounter Summary ---
Author Organization [employer] Address [address] [place] [address] Care Team Providers Care Ropeman Name Role Phone Mitch Alcocer MD Primary Care Prov ider Encounter Details Date Type Department Care Team (Late st Contact Info) Description 07/24/2023 Abstract [facility] [address] [place] [address] Ruth Senior Social History Tobacco Use Types Packs/Day Years Used Date Smoking Tobacco: Never Smokeless Tobacco: Never Alcohol Use Standard Drinks/Week Comments Never 0 (1 standard drink = 0.6 oz pur e alcohol) Depression Answer Date Recorded Patient Health Questionnaire-9 Score 0 06/15/2023 Housing Stability Answer Date Recorded What is your housing situation today? I have ryan samuel 07/09/[address] you li ve. Do you have problems with any of the following? None of the above 07/09/2023 Food Insecurity Answer Date Recorded Within the past 12 months, y ou worried that your food would run out before you got money to buy more: Never True 07/09/2023 Within the past 12 months,th e food you bought just didn't last and you didn't have enough money to get more: Never True 02/2023 Transportation Answer Date Recorded In the past 12 months, has l ack of transportation kept you from medical appts, meetings, work or from getting things needed for daily living? No 07/09/2023 Utilities Answer Date Recorded In the past 12 months, has t he electric, gas, oil or water company threatened to shut off services in your home? No 07/09/2023 Depression Answer Date Recorded Patient Health Questionnaire-2 Score 0 06/15/2023 Sex and Gender Information Value Date Recorded Sex Assigned at Male 07/03/2022 10:36 AM EDT Legal Sex Male 10:36 AM EDT Gender Identity Male 07/03/2022 10:36 AM EDT Sexual Orientation Straight 07/03/2022 10 :36 AM EDT documented as of this encounter Plan of Treatment Not on file documented as of this encounter Procedures Procedure Name Priority Date/Time Associated Diagnosis Comments HM COLONOSCOPY Routine 06/21/2022 documented in this encounter Results * Hm Colonoscopy (06/21/2022) Colonoscopy Normal Normal Narrative Ruth Senior - 06/21/2022 Repeat in 5 years us Historical Provider HEALTH MAINTENANCE Final Result documented in this encounter Visit Diagnoses Not on filedocumented in this encounter Additional Health Concerns Assessment Noted Time PHQ-9 Depression Total Score: 0 06/15/20 23 10:20 AM EDT documented as of this encounter Care Teams Ropeman Relationship Specialty Start Date End Date Mitch Alcocer MD [address] [place] [id number] PCP - General Internal Medicine 07/19/20 documented as of this encounter
--- OUTSIDE RECORDS SUMMARY | 2024-11-05 10:48 | XMS_ITS | Clinical Summary ---
Author Organization [employer] Address [address] [facility] [address] [place] [address] Care Team Providers Care Research Management Associate Name Role Phone Mitch Alcocer MD Primary Care Prov ider Allergies No known active allergies Medications sucralfate (Carafate) 1 g tablet TAKE 1 TABLET BY MOUTH 3 TIMES A DAY BEFORE MEALS 90 tablet 4 Active omeprazole (PriLOSEC) [address] capsule TAKE 1 CAPSULE BY MOUTH BEFORE BREAKFAST 90 capsule 1 4 Active Active Problems Problem Noted Date Diagnosed Date Acute pain of right knee 10/01/2024 Assessment & Plan (10/01/2024 10:59 AM EST): Patient fell a month ago at home, refers pain has been worsening, denied swelling, redness/tenderness, will order a xray and will refer to PT, call back if not improving Gastroesophageal reflux disease without esophagi tis 10/04/2023 Assessment & Plan (10/01/2024 10:58 AM EST): Controlled with omeprazole, no changes will be made Assessment & Plan (03/17/2024 9:44 AM EDT): Followed by gastroenterology, on omeprazole, continue lifesttyle modifications, follow up in 6 months Assessment & Plan (10/04/2023 10:32 AM EST): On omeprazole followed by gastroenterology, he is trying to wean himself from the medication, has been following diet and weight loss reccomendations Lipoma of right lower extremity 06/16/2023 Assessment & Plan (06/16/2023 12:18 PM EDT): Right inner thigh lipoma, mass was mobile round, not tender, patient not interested in surgical removal for now, will monitor Smoker 09/28/2022 Assessment & Plan (09/28/2022 11:01 AM EST): Patient does hookah, encouraged to decrease/stop it to avoid long tern health complications Hyperlipidemia 08/25/2022 Assessment & Plan (10/01/2024 10:57 AM EST): Improved, he has been following diet reccomendations Assessment & Plan (03/17/2024 9:47 AM EDT): The 10-year ASCVD risk score (Jenifer LE, et al., 2019) is: 2.5% Values used to calculate the score: Age: 48 years Sex: Male Is Non- : No Diabetic: No Tobacco smoker: No Systolic Blood Pressure: 132 mmHg Is BP treated: No HDL Cholesterol: 58 mg/dL Total Cholesterol: 213 mg/dL Continue diet and exercise as recommended, will leave blood test on system to be repeate on june Assessment & Plan (10/04/2023 10:33 AM EST): Will place new labs order, he has been following diet reccomendations Assessment & Plan (05/23/2023 8:45 PM EDT): Refers has been trying improving his diet and being more active physically, new labs will be ordered Ascvd score will be calculated to determine if statin therapy needed Assessment & Plan (09/28/2022 10:59 AM EST): Will place order for new labs, is ascvd >5% will start on statin therapy if patient agrees Encounters Date Type Department Care Team Description 10/02/2024 Orders Only [facility] [facility] [address] [place] [phone] Provider, MD Sarmad 10/01/2024 9:45 AM EST Telemedicine [facility] [address] [place] [address] Mitch Alcocer MD Acute pain of right knee (Primary Dx); Mixed hyperlipidemia; Gastroesophageal reflux disease without esophagitis 10/01/2024 Travel 09/30/2024 Telephone [facility] [address] [place] [address] Mitch Alcocer MD chart prep 09/24/2024 Travel from Last 3 Months Immunizations Name Administration Dates Next Due Influenza Injectable Quadriv alant Preservative Free IIV4 MDCK 07/19/2020 Tdap 11/14/2021 Social History Tobacco Use Types Packs/Day Years Used Date Smoking Tobacco: Never Smokeless Tobacco: Never Tobacco Cessation:Counseling Given: Not Answered Alcohol Use Standard Drinks/Week Comments Never 0 [...] Orientation Straight 07/03/2022 10 :36 AM EDT Last Filed Vital Signs Vital Sign Reading Time Taken Comments Blood Pressure 132/87 01/07/2024 6:46 PM EDT Pulse 79 01/07/2024 6:46 PM EDT Temperature 36.6 ??C (97.9 ??F) 01/07/2024 6:46 PM ED T Respiratory Rate 20 06/15/2023 10:19 AM EDT Oxygen Saturation 97% 01/07/2024 6:46 PM EDT Inhaled Oxygen Concentration - - Weight 87.5 kg (193 lb) 06/15/2023 10:19 AM EDT Height 172.7 cm (5' 8 ) 06/15/2023 10:19 AM EDT Body Mass Index 29.35 06/15/2023 10:19 AM EDT Plan of Treatment Health Maintenance Due Date Last Done Comments CT Colonography 1976 FIT DNA/Cologuard 1976 FIT 1976 FOBT 1976 Sigmoidoscopy 1976 Family Planning (PISQ) 1991 Hepatitis B Vaccines (1 of 3 - 19+ 3-dose series) 1995 COVID-19 Vaccine (2023- season) 2024 08/22/2021, 01/25/2021, 01/04/2021 Influenza Vaccine (#1) 2024 07/19/2020 SDOH Screening 10/04/2024 10/04/2023 Tobacco Screening 03/17/2025 03/17/2024 Alcohol/Substance Use Screening 10/01/2025 10/01/2024 Depression Screening 10/01/2025 10/01/2024, 10/01/19 Zoster Vaccines (1 of 2) 2026 Colonoscopy 06/21/2027 06/21/2022 Colorectal Cancer Screening 06/21/2027 Lipid Panel 09/25/2029 09/25/2024, 04/0 01/2024, 06/14/2023, Additional history exists DTaP/Tdap/Td Vaccines (2 - Td or Tdap) 11/15/2031 11/14/2021 RSV Patients and Patients Aged 60 years or older (1 - 1-dose 75+ series) 2051 HIV Screening Completed 11/23/2022, 10/17/2019 Hepatitis C Screening Completed 11/23/2022, 022 HIB Vaccines Aged Out No longer eligi ble based on patient's age to complete this topic HPV Vaccines Aged Out No longer eligi ble based on patient's age to complete this topic Hepatitis A Vaccines Aged Out No long er eligible based on patient's age to complete this topic IPV Vaccines Aged Out No longer eligi ble based on patient's age to complete this topic Meningococcal Vaccine Aged Out No marisa tai eligible based on patient's age to complete this topic Pneumococcal Vaccine: Pediatrics (0 to 5 Years) and At-Risk Patients (6 to 49) Years) Aged Out No longer eligible based on patient's age to complete this topic RSV under 20 months Aged Out No longe r eligible based on patient's age to complete this topic Rotavirus Vaccines Aged Out No longer eligible based on patient's age to complete this topic Procedures Procedure Name Priority Date/Time Associated Diagnosis Comments TRANSTHORACIC ECHO (TTE) COMPLETE Routine 09/29/2024 3:59 PM EST LIPID PANEL, STANDARD Routine 09/25/2024 9:03 AM EST Mixed hyperlipidemia COMPREHENSIVE METABOLIC PANEL Routine 09/25/2024 9:03 AM EST Mixed hyperlipidemia HEPATITIS C AB W/REFL TO HCV RNA, QN, PCR Routine 11/23/2022 9:36 AM EDT Mixed hyperlipidemia HIV 1 RNA, QN PCR W/RFL TASHI (RTI,PI,INTEGRASE) Routine 11/23/2022 9:36 AM EDT Mixed hyperlipidemia HM COLONOSCOPY Routine 06/21/2022 from Last 3 Months or Most Recently Relevant to Health Maintenance Results * Transthoracic echo (TTE) complete (09/29/2024 3:59 PM EST) us Historical Provider MD DANIELSON ECHO PROCEDURES Final Result * (ABNORMAL) Lipid Panel, Standard (09/25/2024 9:03 AM EST) Triglycerides 188(H) <150 mg/dL [facility] Comment:Desirable Triglyceri de: less than 150 mg/dLBorderline High Triglyceride 150-199 mg/dLHigh Triglyceride: 200-499 mg/dLVery High Triglyceride: greater than or equal to 5OO mg/dL Cholesterol 185 <200 mg/dL [facility] Comment:Desirable Cholestero l: less than 200 mg/dLBorderline High Cholesterol: 200-239 mg/dLHigh Cholesterol: greater than 239 mg/dL LDL Cholesterol Calculated 100(H) <100 mg/dL [facility] Comment:Desirable LDL: less than 100 mg/dLNear Optimal/Above Optimal LDL: 110- 129 mg/dLBorderline High LDL: 130-159 mg/dLHigh LDL: 160-189 mg/dLVery High LDL: greater than or equal to 190 mg/dL HDL Cholesterol 48 >40 mg/dL [facility] Comment:Desirable HDL: great er than 40 mg/dL Note: This HDL assay may give artificially low results in patients with liver disease. Blood Venous blood specimen / Unknown 09/25/2024 9:03 AM EST 09/25/2024 2:15 PM EST us Mitch Sheikh MD LAB BLOOD ORDERABL ES Final Result [facility] [address] [place] [phone] * (ABNORMAL) Comprehensive Metabolic Panel (09/25/2024 9:03 AM EST) Sodium 141 135 - 145 mmol/L [facility] Potassium 4.2 3.3 - 5.1 mmol/L [facility] Chloride 110(H) 96 - 108 mmol/L [facility] Carbon Dioxide 26 22 - 29 mmol/L [facility] Anion Gap 9(L) 12 - 20 [facility] Urea Nitrogen (BUN) 19(H) 9 - 16 mg/dL [facility] Creatinine, Serum 0.76 0.5 - 1.4 mg/dL [facility] Estimated Glomerular Filt Rate >60 [facility] Comment:Chronic Kidney Disea se: Estimated GFR < 60 mL/min/[id number] Kidney Disease: Estimated GFR < 15 mL/min/1.73m2 Glucose 89 60 - 115 mg/dL [facility] Calcium 9.6 8.4 - 10.2 mg/dL [facility] Bilirubin, Total 0.7 0.0 - 1.0 mg/dL [facility] Aspartate Amino Transferase 23 5 - 37 U/L [facility] Alanine Aminotransferase 31 0 - 40 U/L [facility] Total Protein 7.2 6.5 - 8.0 g/dL [facility] Albumin Level 4.3 3.5 - 5.0 g/dL [facility] Alkaline Phosphatase 59 39 - 117 U/L [facility] Blood Venous blood specimen / Unknown 09/25/2024 9:03 AM EST 09/25/2024 2:15 PM EST Mitch Sheikh MD LAB BLOOD ORDERABL ES Final Result [facility] [address] [place] [phone] * HIV-1 RNA, Quantitative, Real-Time PCR with Reflex to Genotype (RTI, PI, Integrase) (11/23/2022 9:36 AM EDT) HIV 1 RNA, QN PCR NOT DETECTED copies/mL [facility], HIV 1 RNA, QN PCR NOT DETECTED Log copies/mL [facility], Comment: REFERENCE RANGE: NOT DETECTED copies/mL ?NOT DETECTED ??Log copies/mL This test was performed using Real-Time Polymerase Chain Reaction. Reportable range is 20 to 10,000,000 copies/mL (1.30-7.00 Log copies/mL). 11/23/2022 9:36 AM EDT 11/23/2022 9:37 AM EDT Narrative [facility] - 11/27/2022 1:30 AM EDT FASTING:YES FASTING: YES Mitch Sheikh MD LAB BLOOD ORDERABL ES Final Result Performing Organization Address [facility] Co de Phone Number [address], [facility] [place] [address] [employer] [facility], [address] [place] [address] * Hepatitis C Antibody with Reflex to HCV, RNA, Quantitative, Real-Time PCR (11/23/2022 9:36 AM EDT) Pathologist [facility] Hepatitis C Antibody NON-REACT DENIS NON-REACT DENIS [facility] Index <0.02 <1.00 [facility] Comment: HCV antibody was non-reactive. There is no laboratory evidence of HCV infection. In most cases, no further action is required. However, if recent HCV exposure is suspected, a test for HCV RNA (test code 04678) is suggested. For additional information please refer to http://education.Gociety/faq/YCQ57j7 (This link is being provided for informational/ educational purposes only.) Blood Venous blood specimen / Unknown 11/23/2022 9:36 AM EDT 11/23/2022 9:37 AM EDT Narrative [facility] - 11/27/2022 1:30 AM EDT FASTING:YES FASTING: YES Mitch Sheikh MD LAB BLOOD ORDERABL ES Final Result Performing Organization Address [facility] Co de Phone Number [address], [facility] [place] [address] [employer] [place] [facility] [address] [place] [address] * Hm Colonoscopy (06/21/2022) Colonoscopy Normal Normal Narrative Ruth Senior - 06/21/2022 Repeat in 5 years us Historical Provider HEALTH MAINTENANCE Final Result from Last 3 Months or Most Recently Relevant to Health Maintenance Insurance [email or web address] Care Teams Research Management Associate Relationship Specialty Start Date End Date Mitch Alcocer MD [address] [place] [phone] PCP - General Internal Medicine 07/19/20
--- OUTSIDE RECORDS SUMMARY | 2024-11-05 10:48 | XMS_ITS | Encounter Summary ---
Author Organization [employer] Address [address] [facility] [address] [place] [address] Care Team Providers Care Meat Press Operator Name Role Phone Mitch Alcocer MD Primary Care Prov ider Encounter Details Date Type Department Care Team (Late st Contact Info) Description 09/28/2022 Orders Only [facility] [address] [place] [address] Mitch Alcocer MD [address] [place], [place] [phone] Mixed hyperlipidemia (Primary Dx) Social History Tobacco Use Types Packs/Day Years Used Date Smoking Tobacco: Never Smokeless Tobacco: Never Alcohol Use Standard Drinks/Week Comments Never 0 (1 standard drink = 0.6 oz pur e alcohol) Sex and Gender Information Value Date Recorded Sex Assigned at Male 07/03/2022 10:36 AM EDT Legal Sex Male 10:36 AM EDT Gender Identity Male 07/03/2022 10:36 AM EDT Sexual Orientation Straight 07/03/2022 10 :36 AM EDT COVID-19 Exposure Response Date Recorded In the last 10 days, have yo u been in contact with someone who was confirmed or suspected to have Coronavirus/COVID-19? No / Unsure 09/27/2022 7:51 PM EST documented as of this encounter Plan of Treatment Not on file documented as of this encounter Procedures Procedure Name Priority Date/Time Associated Diagnosis Comments COMPREHENSIVE METABOLIC PANEL, FASTING Routine 06/14/2023 8:39 AM EDT Mixed hyperlipidemia HEMATOXYLIN AND EOSIN STAIN Routine 02/14/2023 3:21 PM EDT Mixed hyperlipidemia HIV 1 RNA, QN PCR W/RFL TASHI (RTI,PI,INTEGRASE) Routine 11/23/2022 9:36 AM EDT Mixed hyperlipidemia HEPATITIS C AB W/REFL TO HCV RNA, QN, PCR Routine 11/23/2022 9:36 AM EDT Mixed hyperlipidemia HEPATIC FUNCTION PANEL Routine 11/23/2022 9:36 AM EDT Mixed hyperlipidemia LIPID PANEL, STANDARD Routine 11/23/2022 9:36 AM EDT Mixed hyperlipidemia documented in this encounter Results * (ABNORMAL) Comprehensive Metabolic Panel, Fasting (06/14/2023 8:39 AM EDT) Sodium 140 135 - 145 mmol/L [facility] Potassium 4.0 3.3 - 5.1 mmol/L [facility] Chloride 105 96 - 108 mmol/L [facility] Carbon Dioxide 24 22 - 29 mmol/L [facility] Anion Gap 15 12 - 20 [facility] Urea Nitrogen (BUN) 18(H) 9 - 16 mg/dL [facility] Creatinine, Serum 0.87 0.5 - 1.4 mg/dL [facility] Estimated Glomerular Filt Rate >60 [facility] Comment:NOTE: For -Am erican individuals, multiply the result by 1.210.Chronic Kidney Disease: Estimated GFR < 60 mL/min/[id number] Kidney Disease: Estimated GFR < 15 mL/min/1.73m2 Glucose Fasting 85 60 - 99 mg/dL [facility] Calcium 9.9 8.4 - 10.2 mg/dL [facility] Bilirubin, Total 0.8 0.0 - 1.0 mg/dL [facility] Aspartate Amino Transferase 19 5 - 37 U/L [facility] Alanine Aminotransferase 42(H) 0 - 40 U/L [facility] Total Protein 7.4 6.5 - 8.0 g/dL [facility] Albumin Level 4.5 3.5 - 5.0 g/dL [facility] Alkaline Phosphatase 59 39 - 117 U/L [facility] 06/14/2023 8:39 AM EDT 06/14/2023 2:47 PM EDT us Mitch Sheikh MD LAB BLOOD ORDERABL ES Final Result [facility] [address] [place] [phone] * Hematoxylin and Eosin Stain (02/14/2023 3:21 PM EDT) 02/14/2023 3:21 PM EDT 02/15/2023 7:13 AM EDT Narrative [facility] - 02/19/2023 10:36 AM EDT ----- ------- Name: Tye Tellez ? Age/Sex: 47/M ? : 1975 Unit#: [id number] ?? Attend Dr: Kyree Knutson MD ?Re02/14/23 ?Status: DEP SDC ? Location: [facility].SS[facility] ?Disch: ? ----- ------- SPEC : [id number] ? RECD: 02/15/23 ? STATUS: ??SOUT ? REQ NUM: [id number] ? ABELINO: 02/14/23 ? SUBM DR: Kyree Knutson MD ? ENTERED: ??02/15/23 ?SP TYPE: Surgical ? OTHR DR: Mitch Alcocer MD ORDERED: ??HE Stain/12, Gross Micro L4/5, IHC/2, H. pylori/2 ? COMMENTS: Part A: Two of the tissue fragments are extremely tiny and ?may be difficult to identify during processing and may fail ?to survive processing. ? Diagnosis ?? A. ??Duodenal bulb, polyp: ??Duodenal mucosa with gastric glands with parietal and chief ?? 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 ? B. ??Stomach, nodule, biopsy: ??Gastric antral mucosa with mild reactive changes and ?? minimal chronic inactive gastritis; negative for H pylori, intestinal metaplasia and ?? dysplasia (see comment). ? C. ??Stomach, random, biopsy: ??Gastric body mucosa with focal minimal chronic inactive ?? inflammation; negative for H pylori, intestinal metaplasia and dysplasia. ? D. ??Gastroesophageal junction, biopsy: ??Squamocolumnar mucosa with mild chronic active ?? inflammation; negative for intestinal metaplasia and dysplasia. ? E. ??Esophagus, distal, biopsy: ??Squamous mucosa with no specific change; no columnar ?? mucosa present. ? Comment: ?? (B): ??No explanation for a nodule is identified and a submucosal lesion cannot be ?? excluded; clinical correlation necessary ?Clinical History Pre-Op Dx: ??GERD Post-Op Dx: Gastritis ?Microscopic Description Microscopic sections reviewed.? Immunohistochemical stains for H. pylori on B and C are negative with appropriate control. ? Material Received ?? A: Duodenal bulb polyp ?? B: BX stomach nodule ?? C: Random stomach BX ?? D: GE junction BX ?? E: Distal esophagus BX ? CONTINUED ON NEXT PAGE ----- ------- Name: Tye Tellez ? Age/Sex: 47/M ? : 1975 Unit#: [id number] ?? Attend Dr: Kyree Knutson MD ?Re02/14/23 ?Status: DEP SDC ? Location: HO.SSS ?Disch: ? ----- ------- SPEC : [id number] ? RECD: 02/15/23 ? STATUS: ??SOUT ? REQ NUM: [id number] ? ABELINO: 02/14/23 ? SUBM DR: Kyree Knutson MD ? ENTERED: ??02/15/23 ?SP TYPE: Surgical ? OTHR DR: Mitch Alcocer MD ORDERED: ??HE Stain/12, Gross Micro L4/5, IHC/2, H. pylori/2 ? COMMENTS: Part A: Two of the tissue fragments are extremely tiny and ?may be difficult to identify during processing and may fail ?to survive processing. ? Gross Description Received in five parts. Part A: Received in formalin labeled Duodenal bulb polyp are four glistening, semitranslucent, soft, hyperemic and congested, cespedes and cespedes-pink, irregular tissue fragments, ranging from minute - 0.25 cm. in greatest dimension, which are submitted in toto in a single cassette labeled A. Part B: Received in formalin labeled Bx stomach nodule are two glistening, semitranslucent, soft, hyperemic, cespedes-pink, irregular tissue fragments, measuring 0.2 and 0.4 cm. in greatest dimension, which are submitted in toto in a single cassette labeled B. Part C: Received in formalin labeled Random stomach bx are two glistening, semitranslucent, soft, hyperemic, cespedes-pink, irregular tissue fragments, measuring 0.15 and 0.25 cm. in greatest dimension, which are submitted in toto in a single cassette labeled C. Part D: Received in formalin labeled GE junction bx are two glistening, semitranslucent, soft, hyperemic, cespedes-pink, irregular tissue fragments, measuring 0.2 and 0.4 cm. in greatest dimension, which are submitted in toto in a single cassette labeled D. Part E: Received in formalin labeled Distal esophagus bx are three glistening, semitranslucent, soft, hyperemic and congested, cespedes and cespedes-pink, irregular tissue fragments, ranging from 0.1 - 0.35 cm. in greatest dimension, which are submitted in toto in a single cassette labeled E. KG Special studies ordered and performed: immunostain for H. pylori on B1 and C1. Copies To: ?? Mitch Alcocer MD ?? [address] ?? [place] [address] ?? [phone] ?? Kyree Knutson MD ?? [address] [place] [address] Dr. ?? [place] [address] ?? [phone] ? CONTINUED ON NEXT PAGE ----- ------- Name: Tye Tellez ? Age/Sex: 47/M ? : 1975 Unit#: [id number] ?? Attend Dr: Kyree Knutson MD ?Re02/14/23 ?Status: DEP SDC ? Location: [facility] ?Disch: ? ----- ------- SPEC : [id number] ? RECD: 02/15/23 ? STATUS: ??SOUT ? REQ NUM: [id number] ? ABELINO: 02/14/231520 ? SUBM DR: Kyree Knutson MD ? ENTERED: ??02/15/23 ?SP TYPE: Surgical ? OTHR DR: Mitch Alcocer MD ORDERED: ??HE Stain/12, Gross Micro L4/5, IHC/2, H. pylori/2 ? COMMENTS: Part A: Two of the tissue fragments are extremely tiny and ?may be difficult to identify during processing and may fail ?to survive processing. ----- ------- Signed (signature on file) lAyx Lindquist 02/19/23 1036 ? ----- ------- ? END OF REPORT ? [facility] External Provider LAB BLO OD ORDERABLES Final Result Performing Organization Address [facility] Co de Phone Number [facility] [address] [place] [phone] * Hepatitis C Antibody with Reflex to HCV, RNA, Quantitative, Real-Time PCR (11/23/2022 9:36 AM EDT) Hepatitis C Antibody NON-REACT DENIS NON-REACT DENIS [employer] [place] [facility] Index <0.02 <1.00 [employer] [place] [facility] Comment: HCV antibody was non-reactive. There is no laboratory evidence of HCV infection. In most cases, no further action is required. However, if recent HCV exposure is suspected, a test for HCV RNA (test code 86901) is suggested. For additional information please refer to http://education.[employer].Incentient/faq/KPL20x2 (This link is being provided for informational/ educational purposes only.) Blood Venous blood specimen / Unknown 11/23/2022 9:36 AM EDT 11/23/2022 9:37 AM EDT Narrative [facility] - 11/27/2022 1:30 AM EDT FASTING:YES FASTING: YES Mitch Sheikh MD LAB BLOOD ORDERABL ES Final Result Performing Organization Address [facility] Co de Phone Number [facility] [address] [place] [address], [place] [address] [employer] [facility] [address] [place] [address] * HIV-1 RNA, Quantitative, Real-Time PCR with Reflex to Genotype (RTI, PI, Integrase) (11/23/2022 9:36 AM EDT) HIV 1 RNA, QN PCR NOT DETECTED copies/mL [facility], HIV 1 RNA, QN PCR NOT DETECTED Log copies/mL [facility], Comment: REFERENCE RANGE: NOT DETECTED copies/mL ?NOT DETECTED ??Log copies/mL This test was performed using Real-Time Polymerase Chain Reaction. Reportable range is 20 to 10,000,000 copies/mL (1.30-7.00 Log copies/mL). 11/23/2022 9:36 AM EDT 11/23/2022 9:37 AM EDT Narrative [facility] - 11/27/2022 1:30 AM EDT FASTING:YES FASTING: YES Mitch Sheikh MD LAB BLOOD ORDERABL ES Final Result [facility] [address], [place] [address] [employer]/[facility], [address] [place] [address] * (ABNORMAL) Lipid Panel, Standard (11/23/2022 9:36 AM EDT) Cholesterol, Total 215(H) <200 mg/dL [employer] [place] [facility] HDL Cholesterol 53 > OR = 40 mg/dL [employer] [place] [facility] Triglycerides 188(H) <150 mg/dL [employer] [place] [facility] LDL Cholesterol 130(H) mg/dL (calc) [facility] [place] [facility] Comment: Reference range: <100 Desirable range <100 mg/dL for primary prevention; ?? <70 mg/dL for patients with CHD or diabetic patients with > or = 2 CHD risk factors. LDL-C is now calculated using the Siomara calculation, which is a validated novel method providing better accuracy than the Friedewald equation in the estimation of LDL-C. Hima COTA et al. BLANCA. 2013;310(19): 7263-6473 (http://education.[employer]/faq/QLT971) Chol/HDLC Ratio 4.1 <5.0 (calc) [employer] [place] [facility] Non-HDL Cholesterol 162(H) <130 mg/dL (calc) [employer] [place] [facility] Comment: For patients with diabetes plus 1 major ASCVD risk factor, treating to a non-HDL-C goal of <100 mg/dL (LDL-C of <70 mg/dL) is considered a therapeutic option. Blood Venous blood specimen / Unknown 11/23/2022 9:36 AM EDT 11/23/2022 9:37 AM EDT Narrative [facility] - 11/27/2022 1:30 AM EDT FASTING:YES FASTING: YES us Mitch Sheikh MD LAB BLOOD ORDERABL ES Final Result [facility] [address], [place] [address] [employer] [place] [facility] [address] [place] [address] * Hepatic Function Panel (11/23/2022 9:36 AM EDT) Protein, Total 7.1 6.1 - 8.1 g/dL [employer] [place] [facility] Albumin 4.5 3.6 - 5.1 g/dL [employer] [place] [facility] Globulin 2.6 1.9 - 3.7 g/dL (calc) [employer] [place] [facility] Albumin/Globulin Ratio 1.7 1.0 - 2.5 (calc) [employer] [place] [facility] Bilirubin, Total 0.5 0.2 - 1.2 mg/dL [employer] [place] [facility] Bilirubin, Direct 0.1 < OR = 0.2 mg/dL [employer] [facility] Bilirubin, Indirect 0.4 0.2 - 1.2 mg/dL (calc) [facility] Alkaline Phosphatase 52 36 - 130 U/L [facility] AST 13 10 - 40 U/L [facility] ALT 36 9 - 46 U/L [facility] Blood Venous blood specimen / Unknown 11/23/2022 9:36 AM EDT 11/23/2022 9:37 AM EDT Narrative [facility] - 11/27/2022 1:30 AM EDT FASTING:YES FASTING: YES us Mitch Sheikh MD LAB BLOOD ORDERABL ES Final Result [facility] [address], [place] [address] [employer] [place] [employer] [facility] [address] [place] [address] documented in this encounter Visit Diagnoses Diagnosis Mixed hyperlipidemia- Primary documented in this encounter Care Teams Meat Press Operator Relationship Specialty Start Date End Date Mitch Alcocer MD [address] [place] [phone] PCP - General Internal Medicine 07/19/20 documented as of this encounter
== END 2024-11-05 09:32 | disposition home or self-care (01) ==
LOC: HO.XRAY 09:31
PROVIDERS: PCP Internal Medicine; Visit Provider Internal Medicine
DX: M25.561 Pain in right knee (principal)
CPT/HCPCS: 73562

== ENCOUNTER → 2024-11-05 09:35 | Outpatient (BNV) | payer MEDICAID, SELFPAY | PROVIDERS: PCP Internal Medicine; Visit Provider Radiology Diagnostic Radiology | DX: M25.561 Pain in right knee (principal) | CPT/HCPCS: 73562 ==

== ENCOUNTER → 2024-12-01 08:03 | Outpatient (BNV) | payer MEDICAID, SELFPAY | PROVIDERS: PCP Student in an Organized Health Care Education/Training Program; Visit Provider Radiology Diagnostic Radiology | DX: M25.561 Pain in right knee (principal) | CPT/HCPCS: 73721 ==

== ENCOUNTER 2024-12-01 08:06 | Outpatient (REF) | payer MEDICAID, SELFPAY ==
--- NOTE | ~2024-12-01 | MR_ITS ---
EXAMINATION: MRI RIGHT KNEE WITHOUT CONTRAST HISTORY: pain right knee COMPARISON: Relation is made with plain films of the right knee dated 11/05/2024. TECHNIQUE: Coronal T1 and fat-suppressed proton density, sagittal proton density and fat-suppressed proton density, and axial fat suppressed T2 weighted MR images of the right knee were obtained. FINDINGS: Bone marrow: Bone marrow signal intensity is normal. Joint effusion: There is no joint effusion. Ackerman's cyst: There is no Ackerman's cyst. Articular cartilage: Intact Muscles/soft tissues: The visualized muscles demonstrate normal signal intensity. There is a pretibial fluid collection measuring 4.0 x 1.0 x 2.8 cm. Anterior cruciate ligament: Intact Posterior cruciate ligament: Intact Medial collateral ligament: Intact Lateral collateral ligament: Intact Medial meniscus: Intact Lateral meniscus: Intact Flexor mechanism: The popliteus, gastrocnemius, and hamstring tendons are intact. Quadriceps tendon: Intact Patellar tendon: Intact Patellar retinacula: Intact MR/MR knee RT wo con IMPRESSION: 4.0 x 1.0 x 2.8 cm pretibial fluid collection. Otherwise unremarkable MRI of the right knee. Electronically signed by: Bill Lewis MD 12/01/2024 08:57 AM EDT
== END 2024-12-01 08:07 | disposition home or self-care (01) ==
LOC: HO.MRI 08:06
PROVIDERS: PCP Student in an Organized Health Care Education/Training Program; Visit Provider Student in an Organized Health Care Education/Training Program
DX: M25.561 Pain in right knee (principal)
CPT/HCPCS: 73721

== ENCOUNTER 2025-05-29 08:55 | Outpatient (REF) | payer MEDICAID, SELFPAY ==
--- OUTSIDE RECORDS SUMMARY | 2025-05-29 09:34 | XMS_ITS | Encounter Summary ---
Author Organization [employer] Address [address] [facility] 7t [place] [address] Care Team Providers Care Division Sales Manager Name Role Phone Mitch Alcocer MD Primary Care Prov ider Encounter Details Date Type Department Care Team (Late st Contact Info) Description 09/28/2022 Orders Only [facility] MED[facility]INE [address] [place] [address] Mitch Alcocer MD [address] [place], [place] [phone] Mixed hyperlipidemia (Primary Dx) Social History Tobacco [...] EDT) Sodium 140 135 - 145 mmol/L [facility] Potassium 4.0 3.3 - 5.1 mmol/L [facility] Chloride 105 96 - 108 mmol/L [facility] Carbon Dioxide 24 22 - 29 mmol/L [facility] Anion Gap 15 12 - 20 [facility] Urea Nitrogen (BUN) 18(H) 9 - 16 mg/dL [facility] Creatinine, Serum 0.87 0.5 - 1.4 mg/dL [facility] Estimated Glomerular Filt Rate >60 [facility] Comment:NOTE: For -Am erican individuals, multiply the result by 1.210.Chronic Kidney Disease: Estimated GFR < 60 mL/min/1.67u3Kczwom Kidney Disease: Estimated GFR < 15 mL/min/1.73m2 Glucose Fasting 85 60 - 99 mg/dL [facility] Calcium 9.9 8.4 - 10.2 mg/dL [facility] Bilirubin, Total 0.8 0.0 - 1.0 mg/dL [facility] Aspartate Amino Transferase 19 5 - 37 U/L [facility] Alanine Aminotransferase 42(H) 0 - 40 U/L [facility] Total Protein 7.4 6.5 - 8.0 g/dL [facility] Albumin Level 4.5 3.5 - 5.0 g/dL [facility] Alkaline Phosphatase 59 39 - 117 U/L [facility] 06/14/2023 8:39 AM EDT 06/14/2023 2:47 PM EDT us Mitch Sheikh MD LAB BLOOD ORDERABL ES Final Result [facility] [address] [place] [phone] * Hematoxylin and Eosin Stain (02/14/2023 3:21 PM EDT) 02/14/2023 3:21 PM EDT 02/15/2023 7:13 AM EDT Narrative [facility] - 02/19/2023 10:36 AM EDT ----- ------- Name: Tye Tellez Age/Sex: 47/M : 1975 Unit#: [id number] Attend Dr: Kyree Knutson MD Re02/14/23 Status: [facility] Location: [place] Disch: ----- ------- SPEC : [id number] RECD: 02/15/23 STATUS: AIDEE MAK NUM: [id number] ABELINO: 02/14/23-[address]: Kyree Knutson MD ENTERED: 02/15/23 SP TYPE: Surgical OTHR DR: Mitch Alcocer MD ORDERED: HE Stain/12, Gross Micro L4/5, IHC/2, H. pylori/2 COMMENTS: Part A: Two of the tissue fragments are extremely tiny and may be difficult to identify during processing and may fail to survive processing. Diagnosis A. Duodenal bulb, polyp: Duodenal mucosa with gastric glands with parietal and chief cells, gastric foveolar surface epithelium and minimal chronic inflammation, consistent with gastric heterotopia; negative for dysplasia. B. Stomach, nodule, biopsy: Gastric antral mucosa with mild reactive changes and minimal chronic inactive gastritis; negative for H pylori, intestinal metaplasia and dysplasia (see comment). C. Stomach, random, biopsy: Gastric body mucosa with focal minimal chronic inactive inflammation; negative for H pylori, intestinal metaplasia and dysplasia. D. Gastroesophageal junction, biopsy: Squamocolumnar mucosa with mild chronic active inflammation; negative for intestinal metaplasia and dysplasia. E. Esophagus, distal, biopsy: Squamous mucosa with no specific change; no columnar mucosa present. Comment: (B): No explanation for a nodule is identified and a submucosal lesion cannot be excluded; clinical correlation necessary Clinical History Pre-Op Dx: GERD Post-Op Dx: Gastritis Microscopic Description Microscopic sections reviewed. Immunohistochemical stains for H. pylori on B and C are negative with appropriate control. Material Received A: Duodenal bulb polyp B: BX stomach nodule C: Random stomach BX D: GE junction BX E: Distal esophagus BX CONTINUED ON NEXT PAGE ----- ------- Name: Tye Tellez Age/Sex: 47/M : 1975 Unit#: [id number] Attend Dr: Kyree Knutson MD Re02/14/23 Status: [facility] Location: [facility] Disch: ----- ------- SPEC : [id number] RECD: 02/15/23 STATUS: AIDEE MAK NUM: [id number] ABELINO: 02/14/[address] [facility] [address]: Kyree Knutson MD ENTERED: 02/15/23 SP TYPE: Surgical OTHR DR: Mitch Alcocer MD ORDERED: HE Stain/12, Gross Micro L4/5, IHC/2, H. pylori/2 COMMENTS: Part A: Two of the tissue fragments are extremely tiny and may be difficult to identify during processing and may fail to survive processing. Gross Description Received in five parts. Part [...] pylori on B1 and C1. Copies To: Mitch Alcocer MD [address] [place], [place] [phone] Kyree Knutson MD [address] [place] [address] [place], [place] [phone] CONTINUED ON NEXT PAGE ----- ------- Name: RosalindaAidenr Age/Sex: 47/M : 1975 Unit#: [id number] Attend Dr: Kyree Knutson MD Re02/14/23 Status: [facility] Location: [facility] Disch: ----- ------- SPEC : [id number] RECD: 02/15/23 STATUS: AIDEE MAK NUM: [id number] ABELINO: 02/14/23-[address] [facility] [address]: Kyree Knutson MD ENTERED: 02/15/23 SP TYPE: Surgical OTHR DR: Mitch Alcocer MD ORDERED: HE Stain/12, Gross Micro L4/5, IHC/2, H. pylori/2 COMMENTS: Part A: Two of the tissue fragments are extremely tiny and may be difficult to identify during processing and may fail to survive processing. ----- ------- Signed (signature on file) Alyx [place] 02/19/23 1036 ----- ------- END OF REPORT [facility] External Provider LAB BLO OD ORDERABLES Final Result [facility] [address] [place] [address] [phone] * Hepatitis C Antibody with Reflex to HCV, RNA, Quantitative, Real-Time PCR (11/23/2022 9:36 AM EDT) Hepatitis C Antibody NON-REACT DENIS NON-REACT DENIS [facility] [employer] Index <0.02 <1.00 [facility] Comment: HCV antibody was non-reactive. There is no laboratory evidence of HCV infection. In most cases, no further action is required. However, if recent HCV exposure is suspected, a test for HCV RNA (test code 61584) is suggested. For additional information please refer to http://education.Pulmologix/faq/LAE48k7 (This link is being provided for informational/ educational purposes only.) Blood Venous blood specimen / Unknown 11/23/2022 9:36 AM EDT 11/23/2022 9:37 AM EDT Narrative [facility] - 11/27/2022 1:30 AM EDT FASTING:YES FASTING: YES Mitch Sheikh MD LAB BLOOD ORDERABL ES Final Result Performing Organization Address [facility] Co de Phone Number [facility] [address], [facility] [place] [address] [facility] [address] [place] [address] * HIV-1 RNA, Quantitative, Real-Time PCR with Reflex to Genotype (RTI, PI, Integrase) (11/23/2022 9:36 AM EDT) HIV 1 RNA, QN PCR NOT DETECTED copies/mL [facility], HIV 1 RNA, QN PCR NOT DETECTED Log copies/mL [facility], Comment: REFERENCE RANGE: NOT DETECTED copies/mL NOT DETECTED Log copies/mL This test was performed using Real-Time Polymerase Chain Reaction. Reportable range is 20 to 10,000,000 copies/mL (1.30-7.00 Log copies/mL). 11/23/2022 9:36 AM EDT 11/23/2022 9:37 AM EDT Narrative [facility] - 11/27/2022 1:30 AM EDT FASTING:YES FASTING: YES Mitch Sheikh MD LAB BLOOD ORDERABL ES Final Result Performing Organization Address [facility] Co de Phone Number [facility] [address], [place] [address] [facility], [address] [place] [address] * (ABNORMAL) Lipid Panel, Standard (11/23/2022 9:36 AM EDT) Cholesterol, Total 215(H) <200 mg/dL [facility] HDL Cholesterol 53 > OR = 40 mg/dL [facility] Triglycerides 188(H) <150 mg/dL [facility] LDL Cholesterol 130(H) mg/dL (calc) [facility] Comment: Reference range: <100 Desirable range <100 mg/dL for primary prevention; <70 mg/dL for patients with CHD or diabetic patients with > or = 2 CHD risk factors. LDL-C is now calculated using the Siomara calculation, which is a validated novel method providing better accuracy than the Friedewald equation in the estimation of LDL-C. Hima SS et al. BLANCA. 2013;310(19): 6911-6389 (http://education.Blueleaf/faq/MMQ104) Chol/HDLC Ratio 4.1 <5.0 (calc) [facility] Non-HDL Cholesterol 162(H) <130 mg/dL (calc) [facility] Comment: For patients with diabetes plus 1 [...] Final Result [facility] [address] [place] [address] [facility] [address] [place] [address] * Hepatic Function Panel (11/23/2022 9:36 AM EDT) Protein, Total 7.1 6.1 - 8.1 g/dL [facility] [employer] Albumin 4.5 3.6 - 5.1 g/dL [facility] [employer] Globulin 2.6 1.9 - 3.7 g/dL (calc) [facility] Albumin/Globulin Ratio 1.7 1.0 - 2.5 (calc) [facility] Bilirubin, Total 0.5 0.2 - 1.2 mg/dL [facility] Bilirubin, Direct 0.1 < OR = 0.2 mg/dL [facility] Bilirubin, Indirect 0.4 0.2 - 1.2 mg/dL (calc) [facility] Alkaline Phosphatase 52 36 - 130 U/L [facility] AST 13 10 - 40 U/L [facility] ALT 36 9 - 46 U/L [facility] Blood Venous blood specimen / Unknown 11/23/2022 9:36 AM EDT 11/23/2022 9:37 AM EDT Narrative [facility] - 11/27/2022 1:30 AM EDT FASTING:YES FASTING: YES us Mitch Sheikh MD LAB BLOOD ORDERABL ES Final Result [facility] [address], [place] [address] [facility] [employer] [address] [place] [address] documented in this encounter Visit Diagnoses Diagnosis Mixed hyperlipidemia- Primary documented in this encounter Care Teams Division Sales Manager Relationship Specialty Start Date End Date Mitch Alcocer MD [address] [place] [phone] PCP - General Internal Medicine 07/19/20 documented as of this encounter
--- OUTSIDE RECORDS SUMMARY | 2025-05-29 09:34 | XMS_ITS | Clinical Summary ---
Author Organization [facility] Address [address] [place] [address] Care Team Providers Care Manager Dairy Name Role Phone Pcp, No Primary Care Provider Unavailabl e Allergies No known active allergies Medications erythromycin (ILOTYCIN) ophthalmic ointment Place a small ribbon of ointment inside the lower eyelid of the affected eye every six hours while awake 3.5 g 12/29/2019 Active Social History Tobacco Use Types Packs/Day Years Used Date Smoking Tobacco: Never Assessed Sex and Gender Information Value Date Recorded Sex Assigned at Not on file Legal Sex Male 1:08 PM EDT Gender Identity Not on file Sexual Orientation Not on file Last Filed Vital Signs Vital Sign Reading Time Taken Comments Blood Pressure 128/60 12/29/2019 1:18 PM EDT Pulse 59 12/29/2019 1:18 PM EDT Temperature 36.2 C (97.1 F) 12/29/2019 1:18 PM EDT Respiratory Rate 16 12/29/2019 1:18 PM EDT [...] 3-dose series) 1995 Colonoscopy 2021 Influenza Vaccine 04/03/2025 COVID-19 Vaccine ( - 2023-2 5 season) 2025 Pneumococcal Vaccine: Pediat gee (0-5 Years) and At-Risk Patients (6 to 49 Years) Aged Out No longer eligible b ased on patient's age to complete this topic Insurance [facility] Care Teams Manager Dairy Relationship Specialty Start Date End Date Pcp, No PCP - General General Medicine 12/29/19
--- OUTSIDE RECORDS SUMMARY | 2025-05-29 09:34 | XMS_ITS | Encounter Summary ---
Author Organization [employer] Address [address] [facility] 7t [place] [address] Care Team Providers Care Fit Model Name Role Phone Mitch Alcocer MD Primary Care Prov ider Encounter Details Date Type Department Care Team ([facility] st Contact Info) Description 07/24/2023 Abstract [facility] [address] [place] [address] Ruth Senior Social History Tobacco Use Types [...] Senior - 06/21/2022 Repeat in 5 years Historical Provider HEALTH MAINTENANCE Final Result documented in this encounter Visit Diagnoses Not on filedocumented in this encounter Additional Health Concerns Assessment Noted Time PHQ-9 Depression Total Score: 0 06/15/20 23 10:20 AM EDT documented as of this encounter Care Teams Fit Model Relationship Specialty Start Date End Date Mitch Alcocer MD [address] [place] [phone] PCP - General Internal Medicine 07/19/20 documented as of this encounter
--- OUTSIDE RECORDS SUMMARY | 2025-05-29 09:34 | XMS_ITS | Encounter Summary ---
Author Organization [employer] Address [address] [facility] 7t [place] [address] Care Team Providers Care Livestock Judging Coach Name Role Phone Mitch Alcocer MD Primary Care Prov ider Encounter Details Date Type Department Care Team (Late st Contact Info) Description 10/02/2024 Orders Only [facility] [address] [place] [address] ProviderSarmad MD Social History Tobacco Use Types [...] the past 12 months, has t he [email or web address], gas, oil or water [employer]izibility threatened to shut off services in your [...] (09/29/2024 3:59 PM EST) us Historical Provider CV ECHO PROCEDURES Final Result documented in this encounter Visit Diagnoses Not on filedocumented in this encounter Additional Health Concerns Assessment Noted Time PHQ-9 Depression Total Score: 6 10/01/19 25 9:43 AM EST documented as of this encounter Care Teams Livestock Judging Coach Relationship Specialty Start Date End Date Mitch Alcocer MD [address] [place] [phone] PCP - General Internal Medicine 07/19/20 documented as of this encounter
--- OUTSIDE RECORDS SUMMARY | 2025-05-29 09:34 | XMS_ITS | Clinical Summary ---
Author Organization [employer] Address [address] [facility] 7t [place] [address] Care Team Providers Care Neurology Specialist Name Role Phone Mitch Alcocer MD Primary Care Prov ider Allergies No known active allergies Medications omeprazole (PriLOSEC) [address] capsule TAKE 1 CAPSULE BY MOUTH BEFORE BREAKFAST 90 capsule 1 4 Active meloxicam (Mobic) 7.5 MG tablet Take 1 tablet (7.5 mg) by mouth Once per day. 30 tablet 11 5 11/22/19 26 Active Active Problems Problem Noted Date Diagnosed Date Acute pain of right knee 10/01/2024 Assessment & Plan (12/30/2024 10:51 AM EDT): Improved, discussed MRI results, continue home remedies and exercises as intructed on PT, avoid heavy lifting Assessment & Plan (10/01/2024 10:59 AM EST): [...] health complications Hyperlipidemia 08/25/2022 Assessment & Plan (05/21/2025 11:08 AM EDT): Will order new labs for guidance of therapy, encouraged to keep low cholesterol diet, exercise, follow up in 6 months Assessment & Plan (10/01/2024 10:57 AM EST): [...] Encounters Date Type Department Care Team Description 05/21/2025 9:45 AM EDT Telemedicine [facility] [address] [place] [address] Mitch Alcocer MD Mixed hyperlipidemia (Primary Dx) 05/21/2025 Travel 05/20/2025 Travel 05/20/2025 Telephone [facility] [address] [place] [address] Mitch Alcocer MD chart prep 04/21/2025 2:00 PM EDT Office Visit [facility] [address] [place] [address] Ladi Durbin MD Plantar fasciitis, bilateral (Primary Dx) 04/21/2025 Travel 04/20/2025 Telephone [facility] [address] [place] [address] Mitch Alcocer MD Nurse Triage from Last 3 Months Immunizations Immunization Administration Dates Next Due Influenza Injectable Quadriv [...] housing situation today? I have ryan samuel 05/21/[address] you li ve. Do you have problems with any of the following? None of the above 05/21/2025 Food Insecurity Answer Date Recorded Within the past 12 months, y ou worried that your food would run out before you got money to buy more: Never True 05/21/2025 Within the past 12 months,th e food you bought just didn't last and you didn't have enough money to get more: Never True Transportation Answer Date Recorded In the past 12 months, has l ack of transportation kept you from medical appts, meetings, work or from getting things needed for daily living? No 05/21/2025 Utilities Answer Date Recorded In the past 12 months, has t he electric, gas, oil or water company threatened to shut off services in your home? No 05/21/2025 Depression Answer Date Recorded Patient Health Questionnaire-2 Score 6 10/01/2024 Internet Access Answer Date Recorded Internet Access Q1 Yes 05/21/2025 Internet Access Q2 Not on file 05/21/2025 Sex and Gender Information Value Date Recorded Sex Assigned at Male 07/03/2022 10:36 AM EDT Legal Sex Male 10:36 AM EDT Gender Identity Male 07/03/2022 10:36 AM EDT Sexual Orientation Straight 07/03/2022 10 :36 AM EDT Last Filed Vital Signs Vital Sign Reading Time Taken Comments Blood Pressure 129/81 04/21/2025 2:00 PM EDT Pulse 71 04/21/2025 2:00 PM EDT Temperature 36.5 C (97.7 F) 04/21/2025 2:00 PM EDT Respiratory Rate 20 04/21/2025 2:00 PM EDT Oxygen Saturation 96% 04/21/2025 2:00 PM EDT Inhaled Oxygen Concentration - - Weight 90.3 kg (199 lb) 04/21/2025 2:00 PM EDT Height 172.7 cm (5' 8 ) 04/21/2025 2:00 PM EDT Body Mass Index 30.26 04/21/2025 2:00 PM EDT Plan of Treatment Health Maintenance Due Date Last Done Comments CT Colonography 1975 FIT DNA/Cologuard 1975 FIT 1975 FOBT 1975 Sigmoidoscopy 1975 Family Planning (PISQ) 1991 Hepatitis B Vaccines (1 of 3 - 19+ 3-dose series) 1995 COVID-19 Vaccine ( season) 2025 08/22/2021, 01/25/2021, 01/04/2021 Influenza Vaccine (#1) 2025 07/19/2020 Disability Screening 09/26/2025 09/26/2024 Alcohol/Substance Use Screening 10/01/2025 10/01/2024 Depression Screening 10/01/2025 10/01/2024, 10/01/19 SDOH Screening 05/21/2026 05/21/2025 Tobacco Screening 05/21/2026 05/21/2025 Zoster Vaccines (1 of 2) 2026 Colonoscopy [...] patient's age to complete this topic Meningococcal B Vaccine Aged Out No l onger eligible based on patient's age to complete this topic Meningococcal Vaccine Aged Out No marisa tai eligible based on patient's age to complete this topic Pneumococcal Vaccine: Pediatrics (0 to 5 Years) and At-Risk Patients (6 to 49) Years Aged Out No longer eligible based on patient's age to complete this topic RSV under 20 months Aged Out No longe r eligible based on patient's age to complete this topic Rotavirus Vaccines Aged Out No longer eligible based on patient's age to complete this topic Procedures Procedure Name Priority Date/Time Associated Diagnosis Comments LIPID PANEL, STANDARD Routine 09/25/2024 9:03 AM EST Mixed hyperlipidemia HEPATITIS C AB W/REFL TO HCV RNA, QN, PCR Routine 11/23/2022 9:36 AM EDT Mixed hyperlipidemia HIV 1 RNA, QN PCR W/RFL TASHI (RTI,PI,INTEGRASE) Routine 11/23/2022 9:36 AM EDT Mixed hyperlipidemia HM COLONOSCOPY Routine 06/21/2022 from Last 3 Months or Most Recently Relevant to Health Maintenance Results * (ABNORMAL) Lipid Panel, Standard (09/25/2024 9:03 AM EST) Triglycerides 188(H) <150 mg/dL [facility] Comment:Desirable Triglyceri de: less than 150 mg/dLBorderline High Triglyceride 150-199 mg/dLHigh Triglyceride: 200-499 mg/dLVery High Triglyceride: greater than or equal to 5OO mg/dL Cholesterol 185 <200 mg/dL [facility] Comment:Desirable Cholestero l: less than 200 mg/dLBorderline High Cholesterol: 200-239 mg/dLHigh Cholesterol: greater than 239 mg/dL LDL Cholesterol Calculated 100(H) <100 mg/dL [facility] Comment:Desirable LDL: less than 100 mg/dLNear Optimal/Above Optimal LDL: 110- 129 mg/dLBorderline High LDL: 130-159 mg/dLHigh LDL: 160-189 mg/dLVery High LDL: greater than or equal to 190 mg/dL HDL Cholesterol 48 >40 mg/dL [facility] Comment:Desirable HDL: great er than 40 mg/dL Note: This HDL assay may give artificially low results in patients with liver disease. Blood Venous blood specimen / Unknown 09/25/2024 9:03 AM EST 09/25/2024 2:15 PM EST us Mitch Sheikh MD LAB BLOOD ORDERABL ES Final Result [facility] [address] [place] [address] [phone] * HIV-1 RNA, Quantitative, Real-Time PCR with Reflex to Genotype (RTI, PI, Integrase) (11/23/2022 9:36 AM EDT) HIV 1 RNA, QN PCR NOT DETECTED copies/mL [facility], HIV 1 RNA, QN PCR NOT DETECTED Log copies/mL [facility], Comment: REFERENCE RANGE: NOT DETECTED copies/mL NOT DETECTED Log copies/mL This test was performed using Real-Time Polymerase Chain Reaction. Reportable range is 20 to 10,000,000 copies/mL (1.30-7.00 Log copies/mL). 11/23/2022 9:36 AM EDT 11/23/2022 9:37 AM EDT Narrative [facility] - 11/27/2022 1:30 AM EDT FASTING:YES FASTING: YES Mitch Sheikh MD LAB BLOOD ORDERABL ES Final Result [facility] [address], [place] [address] [facility], [address] [place] [address] * Hepatitis C Antibody with Reflex to HCV, RNA, Quantitative, Real-Time PCR (11/23/2022 9:36 AM EDT) Hepatitis C Antibody NON-REACT DENIS NON-REACT DENIS [facility] [place] [employer] Index <0.02 <1.00 [facility] [place] [facility] Comment: HCV antibody was non-reactive. There is no laboratory evidence of HCV infection. In most cases, no further action is required. However, if recent HCV exposure is suspected, a test for HCV RNA (test code 35325) is suggested. For additional information please refer to http://education.Three Rings/faq/LYI09g4 (This link is being provided for informational/ educational purposes only.) Blood Venous blood specimen / Unknown 11/23/2022 9:36 AM EDT 11/23/2022 9:37 AM EDT Narrative [facility] - 11/27/2022 1:30 AM EDT FASTING:YES FASTING: YES Mitch Sheikh MD LAB BLOOD ORDERABL ES Final Result [facility] [address] [place] [address] [facility] [address] [place] [address] * Hm Colonoscopy (06/21/2022) Colonoscopy Normal Normal Narrative Ruth Senior - 06/21/2022 Repeat in 5 years Historical Provider HEALTH MAINTENANCE Final Result from Last 3 Months or Most Recently Relevant to Health Maintenance Insurance [facility] [facility] Care Teams Neurology Specialist Relationship Specialty Start Date End Date ThompsonMitch Fuentes MD [address] [place] [address] [place] [id number] PCP - General Internal Medicine 07/19/20
[2025-05-29 14:24] LABS: MANUAL DIFF FLAG NO
[2025-05-29 14:35] LABS: Hematocrit 45.5 % (42.0-52.0); Hemoglobin 15.3 g/dl (14.0-18.0); Imm Gran Abs Auto 0.02 X10*3/uL (0.00-0.03); Imm Gran Pct Auto 0.3 % (0.0-0.4); Lymphocytes Absolute Auto 2.3 X10*3/uL (1.2-4.9); Mean Corpuscular HGB Conc 33.6 g/dl (31.0-36.0); Mean Corpuscular Hemoglobin 28.9 pg (27.0-33.0); Mean Corpuscular Volume 86.0 fL (80.0-98.0); NRBC Abs Auto 0.000 X10*3/uL (0.0-0.012); NRBC Pct Auto 0.0 /100WBC (0.0-0.2); Platelet Count 255 X10*3/uL (160-400); Red Blood Count 5.29 X10*6/uL (4.60-5.80); White Blood Count 6.8 X10*3/uL (4.8-10.8)
[2025-05-29 14:47] LABS: Alanine Aminotransferase 44 U/L (0-40); Albumin Level 4.6 g/dL (3.5-5.0); Alkaline Phosphatase 61 U/L (39-117); Anion Gap 12 (12-20); Aspartate Amino Transferase 24 U/L (5-37); Blood Urea Nitrogen 14 mg/dL (9-16); Calcium 9.3 mg/dL (8.4-10.2); Carbon Dioxide 28 mmol/L (22-29); Chloride 107 mmol/L (96-108); Cholesterol 221 mg/dL (<200); Estimated Glomerular Filt Rate > 60; HDL Cholesterol 50 mg/dL (>40); Potassium 4.5 mmol/L (3.3-5.1); Sodium 142 mmol/L (135-145); Total Protein 7.0 g/dL (6.5-8.0); Triglycerides 222 mg/dL (<150)
== END 2025-05-29 08:56 | disposition home or self-care (01) ==
LOC: HO.CHCLDS 08:55
PROVIDERS: Visit Provider Internal Medicine
DX: E78.2 Mixed hyperlipidemia (principal)
CPT/HCPCS: 36415; 80053; 80061; 85025